=== PATIENT | female | born 1935 | race African-American/Black ===

== ENCOUNTER 2019-06-18 09:29 | Emergency (ER) | payer OTHER ==
--- OUTSIDE RECORDS SUMMARY | 2019-06-18 09:31 | XMS REPORT ---
:1935 [facility] Address [address] [place] [address] Dr. Griffiths. [address] [place] [id number] Care Team Providers Name Role Phone Unavailable Unavailable Unavailable Problems This patient has no known problems. Allergies, Adverse Reactions, Alerts This patient has no known allergies or adverse reactions. Medications This patient has no known medications.
[2019-06-18] MEDS ORDERED: MORPHINE 4 MG/ML SYR ONE (10:09)
[2019-06-18] MEDS ORDERED: ONDANSETRON 4 MG/2 ML VIAL ONE (10:09)
--- NOTE | 2019-06-18 10:43 | RAD REPORT ---
EXAM DESCRIPTION: CT - CTHCSPWOC - 06/18/2019 10:29 am CLINICAL HISTORY: Fall, head and neck injury COMPARISON: None. TECHNIQUE: Axial 5 mm thick images of the head were obtained. Axial 2 mm thick images of the cervic al spine were obtained with sagittal and coronal reconstruction images generated and reviewed. All CT scans are performed using dose optimization technique as appropriate and may include automated exposure control or mA/KV adjustment according to patient size. FINDINGS: No intracranial hemorrhage, mass, edema or acute intracranial finding. No acute cortical based infarc tion. No cortical edema or sulcal effacement. Patient has prominent atrophy and moderate chronic isch emic change. Ventricles are in proportion to the amount of volume loss. Arterial tree calcifications are present. No extra-axial fluid collections. Mastoid air cells and paranasal sinuses are clear. No globe or orbit abnormality seen. Cervical bodies are normal in height. Minimal anterior subluxation of C3 on C4 is present and can be accounted for by the severity of facet degenerative change. Very slight retrolisthesis of C4 relative to C5 seen with significant C4-5 disc space narrowing. C5-6 and C6-7 disc space narrowing also prese nt. Multilevel facet joint degenerative change present. Left bony foraminal encroachment at C3-4. Mil c-[id number] bilateral foraminal encroachment at C4-5 and on the left at C5-6. Left foraminal C6-7 e ncroachment. No fracture or acute bony abnormality. No paraspinal mass or hematoma. IMPRESSION: Prominent atrophy and chronic ischemic changes are present with no hemorrhage or acute i ntracranial finding. Prominent cervical spine degenerative change as detailed. No acute cervical spine finding. Central canal detail is inherently limited on CT imaging.
--- NOTE | 2019-06-18 10:53 | RAD REPORT ---
EXAM DESCRIPTION: CT - Chest Abd Pelvis Wo Con - 06/18/2019 10:29 am CLINICAL HISTORY: fall, right sided painchest abdomen and pelvic pain COMPARISON: None. TECHNIQUE: Axial 5 millimeter thick images of the chest abdomen and pelvis were obtained without IV contrast. No oral contrast. All CT scans are performed using dose optimization technique as appropriate and may include automated exposure control or mA/KV adjustment according to patient size. FINDINGS: No pneumothorax or pulmonary contusion. Fibrotic lung changes are present. No mass or infi ltrate in the lung parenchyma. No pleural fluid collection or pleural based mass. No chest wall mass or abnormal axillary lymphadenopathy seen. Mediastinal and hilar regions show no mass or lymphadenop athy. No significant cardiac finding. No endobronchial lesion. No displacement of the more Camilo calc ifications. Dense Coronary artery calcifications are present. The liver, spleen and pancreas show no significant findings. Gallbladder and biliary tree are normal . No hydronephrosis present. Renal function cannot be assessed on noncontrast imaging. No adrenal abnor malities. No urinary bladder abnormalities. An enlarged lobulated uterus is present with numerous v sadie densely calcified fibroids. Ovaries are atrophic or obscured by bowel. No suspicion for adnexal m ass. No acute bowel injury seen. Patient has a constipation pattern with a large amount of stool present d istending the entire course of the colon. No free air, free fluid or inflammatory stranding. No melissa ia, mass or bulky lymphadenopathy. Patient has bilateral subacute and chronic rib fractures. A lateral left fifth rib fracture is seen a nd appears to be acute. Lateral left sixth rib fracture an eighth rib fracture noted probably acute a s well. Posterior left eighth rib fracture is minimally displaced also appearing acute. Nondisplaced posterior seventh rib fractures seen. Approximately 25% compression fracture in the T12 body. Posterior wall height is preserved without en croachment into the central canal. Age is uncertain. No lytic or blastic component. IMPRESSION: CT chest imaging shows no pulmonary contusion, pneumothorax or other emergent finding. Patient has multiple left-sided rib fractures that appear to be acute. Patient has bilateral subacute and chronic rib fracture changes as well. No associated pleural or parenchymal acute injury related to the fractures. Approximately 25% T12 fracture with posterior wall height preserved. Age of the fracture is uncertain . No acute CT abdomen or pelvis finding. Patient has a constipation pattern with a large amount of stoo l distending the entirety of the colon.
[2019-06-18] MEDS ORDERED: FENTANYL CITR 100 MCG/2 ML ONE (11:50)
--- NOTE | 2019-06-18 17:33 | ER ---
Nurse's Notes [facility] Name: Peggy Nava Age: 84 yrs Sex: Female : 1935 Arrival Date: 06/18/2019 Time: 09:36 Bed 15 Private MD: Diagnosis: Multiple fractures of ribs, bilateral;Fracture of T11-T12 vertebra Presentation: 06/18 09:36 Presenting complaint: EMS states: called out for fall, was sitting on the edge of bed, em turned and slipped onto the floor, denies hitting head or LOC, complaining of R rib pain and R hip pain. Transition of care: patient was not received from another setting of care. Onset of symptoms was June 18, 2019. Risk Assessment: Do you want to hurt yourself or someone else? Patient reports no desire to harm self or others. Initial Sepsis Screen: Does the patient meet any 2 criteria? No. Patient's initial sepsis screen is negative. Does the patient have a suspected source of infection? No. Patient's initial sepsis screen is negative. Care prior to arrival: None. 09:36 Method Of Arrival: EMS: [facility] em 09:44 Acuity: BARB 3 ss 11:38 Mechanism of Injury: Fall sitting onto floor. Trauma event details: Injury occurred in [address], Injury occurred: at home. Injury occurred: June 18, 2019. Trauma Activation: Not Applicable Physician: ED Physician; Name: ; Notified At: ; Arrived At: Physician: General Surgeon; Name: ; Notified At: ; Arrived At: Physician: Radiology; Name: ; Notified At: ; Arrived At: Physician: Respiratory; Name: ; Notified At: ; Arrived At: Physician: Lab; Name: ; Notified At: ; Arrived At: Historical: - Home Meds: 09:42 Tylenol-Codeine #3 300-30 mg oral tab [Active]; lorazepam 2 mg Oral tab 1 tab 2 times em per day [Active]; tramadol 50 mg Oral tab 1 tab every 6 hours [Active]; tresiba [Active]; - PMHx: 09:42 Diabetes - IDDM; Hypertension; em - PSHx: 09:42 left hip surgery; left knee replacement; Left toe surgery; em - Immunization history:: Adult Immunizations unknown. - Social history:: Smoking status: Patient/guardian denies using tobacco. - Immunization history: Last tetanus immunization: unknown. - Ebola Screening: : Patient negative for fever greater than or equal to 101.5 degrees Fahrenheit, and additional compatible Ebola Virus Disease symptoms Patient denies exposure to infectious person Patient denies travel to an Ebola-affected area in the 21 days before illness onset No symptoms or risks identified at this time. Screenin:54 Abuse screen: Denies threats or abuse. Denies injuries from another. Nutritional jl7 screening: No deficits noted. Tuberculosis screening: No symptoms or risk factors identified. Fall Risk Fall in past 12 months (25 points). Total [place] Fall Scale indicates High Risk Score (45 or more points). Fall prevention measures have been instituted. Side Rails Up X 2 Placed Close to Nursing Station Frequent Obs/Assessments Occuring As available patient and family educated on Fall Prevention Program and Strategies. Primary Survey: 09:45 NO uncontrolled hemorrhage observed. Breathing/Chest: Respiratory pattern: regular, jl7 Respiratory effort: spontaneous, unlabored, Chest inspection: symmetrical rise and fall of the chest. Circulation: Skin color: pink. Disability Alert. Exposure/Environment: A warming method has been applied: A warm blanket has been provided to the patient. 10:00 Reassessment Breathing/Chest Respiratory pattern Regular Respiratory effort Spontaneous jl7 Unlabored Chest inspection Symmetrical Circulation Color [place] Disability Alert. Assessment: 09:54 General: Appears uncomfortable, Behavior is cooperative, anxious, crying. Pain: jl7 Complains of pain in "All over but mainly my back under my left shoulder blade.". Neuro: Level of Consciousness is awake, alert, obeys commands, Oriented to person, place, time. Cardiovascular: Patient's skin is warm and dry. Respiratory: Airway is patent Respiratory effort is even, unlabored, Respiratory pattern is regular, symmetrical. GI: No signs and/or symptoms were reported involving the gastrointestinal system. : No signs and/or symptoms were reported regarding the genitourinary system. EENT: No signs and/or symptoms were reported regarding the EENT system. Derm: Skin is pink, warm \\T\\ dry. Musculoskeletal: denies tenderness on palpation. 11:00 Reassessment: Patient appears in no apparent distress at this time. Patient and/or jl7 family updated on plan of care and expected duration. Pain level reassessed. Patient is alert, oriented x 3, equal unlabored respirations, skin warm/dry/pink. Patient states feeling better. 12:00 Reassessment: Patient appears in no apparent distress at this time. No changes from jl7 previously documented assessment. Patient and/or family updated on plan of care and expected duration. Pain level reassessed. Patient is alert, oriented x 3, equal unlabored respirations, skin warm/dry/pink. 13:15 Reassessment: attempted to ambulate pt with walker, pt stood up and c/o left thigh/hip jl7 pain. ERP notified. 14:00 Reassessment: Patient appears in no apparent distress at this time. Patient and/or jl7 family updated on plan of care and expected duration. Pain level reassessed. Patient is alert, oriented x 3, equal unlabored respirations, skin warm/dry/pink. Patient states symptoms have improved. 15:00 Reassessment: Attempted to ambulate pt, pt refusing, reports "It's too painful." jl7 Readjusted pt in bed, notified ERP, no new orders at this time. Awaiting call back from rehab center. 16:05 Reassessment: Patient appears in no apparent distress at this time. Patient and/or jl7 family updated on plan of care and expected duration. Pain level reassessed. Pt laying in bed with eyes closed, respirations even and unlabored, no signs of distress noted at this time, family remains at bedside. 17:00 Reassessment: Patient appears in no apparent distress at this time. No changes from jl7 previously documented assessment. Patient and/or family updated on plan of care and expected duration. Pain level reassessed. Patient is alert, oriented x 3, equal unlabored respirations, skin warm/dry/pink. 17:30 Reassessment: Pt will be discharged once family arrives to assist in transporting pt jl7 home. Vital Signs: 09:42 BP 109 / 56; Pulse 93; Resp 20; Temp 98.1(O); Pulse Ox 97% on R/A; Weight 83.46 kg; em Height 5 ft. 7 in. (170.18 cm); Pain 10/10; 10:00 BP 114 / 65; Pulse 89; Resp 16 S; Pulse Ox 99% on R/A; jl7 11:00 BP 127 / 72; Pulse 91; Resp 14 S; Pulse Ox 90% on R/A; jl7 11:30 BP 129 / 67; Pulse 87; Resp 14 S; Pulse Ox 100% on 2 lpm NC; jl7 12:30 BP 131 / 58; Pulse 84; Resp 16 S; Pulse Ox 100% on 2 lpm NC; jl7 14:05 BP 124 / 56; Pulse 87; Resp 14 S; Pulse Ox 100% on R/A; jl7 16:06 BP 146 / 60; Pulse 89; Resp 16 S; Pulse Ox 100% on R/A; jl7 09:42 Body Mass Index 28.82 (83.46 kg, 170.18 cm) em [place] Coma Score: 09:42 Eye Response: spontaneous(4). Verbal Response: oriented(5). Motor Response: obeys jl7 commands(6). Total: 15. Trauma Score (Adult): 09:42 Eye Response: spontaneous(1); Verbal Response: oriented(1); Motor Response: obeys jl7 commands(2); Systolic BP: > 89 mm Hg(4); Respiratory Rate: 10 to 29 per min(4); [place]ora Score: 15; Trauma Score: 12 ED Course: 09:36 Patient arrived in ED. em 09:42 Arm band placed on. em 09:44 Triage completed. ss 09:45 Alexandria Jason, MARIANNA is Primary Nurse. jl7 09:53 Mehul Sweet PA is PHCP. jm 09:54 Faraz Islas MD is Attending Physician. [place] 09:54 Patient has correct armband on for positive identification. Bed in low position. Call jl7 light in reach. Side rails up X 1. industrial controller on. Pulse ox on. NIBP on. 10:10 Inserted saline lock: 22 gauge in right hand, using aseptic technique. jl7 10:31 CT Head C Spine In Process Unspecified. EDMS 10:31 CT Chest Abdomen Pelvis W/O Contrast In Process Unspecified. EDMS 11:00 Patient maintains SpO2 saturation greater than 95% on room air. Thermoregulation: warm jl7 blanket given to patient. 18:45 No provider procedures requiring assistance completed. IV discontinued, intact, jl7 bleeding controlled, No redness/swelling at site. Pressure dressing applied. 19:31 Primary Nurse role handed off by Alexandria Jason RN jl7 Administered Medications: 10:13 Drug: Zofran 4 mg Route: IVP; Site: right hand; jl7 11:25 Follow up: Response: No adverse reaction jl7 10:15 Drug: morphine 4 mg Route: IVP; Site: right hand; jl7 10:40 Follow up: Response: No adverse reaction; Pain is decreased jl7 11:51 Drug: fentaNYL (PF) 25 mcg Route: IVP; Site: right hand; jl7 12:15 Follow up: Response: No adverse reaction; Pain is decreased jl7 13:22 Drug: fentaNYL (PF) 25 mcg Route: IVP; Site: right hand; jl7 14:02 Follow up: Response: No adverse reaction; Pain is decreased; RASS: Light sedation (-2) jl7 18:45 Drug: fentaNYL (PF) 25 mcg Route: IVP; Site: right hand; jl7 18:45 Follow up: Response: Medication administered at discharge. jl7 Point of Care Testing: Blood Glucose: 17:28 Blood Glucose: 145 mg/dL; jl7 Ranges: Outcome: 17:32 Discharge ordered by . [place] 18:45 Discharged to home via wheelchair, with family. jl7 18:45 Condition: stable 18:45 Discharge instructions given to patient, family, Instructed on discharge instructions, follow up and referral plans. medication usage, Demonstrated understanding of instructions, follow-up care, medications, Prescriptions given X 1. 19:12 Patient left the ED. jl7 19:32 Patient left the ED. jl7 Signatures: Dispatcher [employer] EDMS Mehul Sweet PA PA Tawanda Lara, MASTER MERCHANDISER MASTER MERCHANDISER Zarina Limon RN RN Alexandria Jason RN RN jl7 Corrections: (The following items were deleted from the chart) 11:24 09:54 Pain: Complains of pain in "All over but mainly my back under my left shoulder jlMarci blade." jl7 19:29 09:54 Pain: Complains of pain in "All over but mainly my back under my shoulder blade." pradeep fernández 19:29 15:00 Reassessment: Attempted to ambulate pt, pt refusing, reports "It's to painful." jl7 Readjusted pt in bed, notified ERP, no new orders at this time. Awaiting call back from [facility] jl7
--- NOTE | 2019-06-18 17:34 | EDPHYS ---
Physician Documentation [facility] Name: Peggy Nava Age: 84 yrs Sex: Female : 1935 Arrival Date: 06/18/2019 Time: 09:36 Bed 15 Private MD: ED Physician Faraz Islas HPI: 06/18 09:54 This 84 yrs old Black Female presents to ER via EMS with complaints of Fall Injury. [facility] 09:54 Details of fall: The patient fell from seated position, off the edge of a bed. Onset: jmm The symptoms/episode began/occurred acutely, just prior to arrival. This is an 84 year old female with a history of dm, htn that presents to the ED with complaints of left sided rib pain after a fall which occurred just prior to arrival. Patient states she was seated at the edge of her bed, turned, and then slipped off the bed landing on her left side. Patient complains of diffuse left sided rib pain. Denies known head injury, denies neck pain. . Historical: - Home Meds: 09:42 Tylenol-Codeine #3 300-30 mg oral tab [Active]; lorazepam 2 mg Oral tab 1 tab 2 times em per day [Active]; tramadol 50 mg Oral tab 1 tab every 6 hours [Active]; tresiba [Active]; - PMHx: 09:42 Diabetes - IDDM; Hypertension; em - PSHx: 09:42 left hip surgery; left knee replacement; Left toe surgery; em - Immunization history:: Adult Immunizations unknown. - Social history:: Smoking status: Patient/guardian denies using tobacco. - Immunization history: Last tetanus immunization: unknown. - Ebola Screening: : Patient negative for fever greater than or equal to 101.5 degrees Fahrenheit, and additional compatible Ebola Virus Disease symptoms Patient denies exposure to infectious person Patient denies travel to an Ebola-affected area in the 21 days before illness onset No symptoms or risks identified at this time. ROS: 09:54 Constitutional: Negative for fever, chills, and weight loss, Cardiovascular: Negative jm for chest pain, palpitations, and edema, Respiratory: Negative for shortness of breath, cough, wheezing, and pleuritic chest pain. 09:54 MS/Extremity: Negative for injury and deformity, Skin: Negative for injury, rash, and discoloration, Neuro: Negative for headache, weakness, numbness, tingling, and seizure, Psych: Negative for depression, anxiety, suicide ideation, homicidal ideation, and hallucinations. 09:54 Back: Positive for left rib pain. 09:54 All other systems are negative. Exam: 09:54 Head/Face: atraumatic. Eyes: EOMI, no conjunctival erythema appreciated ENT: Moist jmm Mucus Membranes Neck: Trachea midline, Supple 09:54 Constitutional: The patient appears alert, awake, in obvious pain. 09:54 Head/face: Exam is negative for naqvi signs, contusion. Vital Signs: 09:42 BP 109 / 56; Pulse 93; Resp 20; Temp 98.1(O); Pulse Ox 97% on R/A; Weight 83.46 kg; em Height 5 ft. 7 in. (170.18 cm); Pain 10/10; 10:00 BP 114 / 65; Pulse 89; Resp 16 S; Pulse Ox 99% on R/A; jl7 11:00 BP 127 / 72; Pulse 91; Resp 14 S; Pulse Ox 90% on R/A; jl7 11:30 BP 129 / 67; Pulse 87; Resp 14 S; Pulse Ox 100% on 2 lpm NC; jl7 12:30 BP 131 / 58; Pulse 84; Resp 16 S; Pulse Ox 100% on 2 lpm NC; jl7 14:05 BP 124 / 56; Pulse 87; Resp 14 S; Pulse Ox 100% on R/A; jl7 16:06 BP 146 / 60; Pulse 89; Resp 16 S; Pulse Ox 100% on R/A; jl7 09:42 Body Mass Index 28.82 (83.46 kg, 170.18 cm) em [place] Coma Score: 09:42 Eye Response: spontaneous(4). Verbal Response: oriented(5). Motor Response: obeys jl7 commands(6). Total: 15. Trauma Score (Adult): 09:42 Eye Response: spontaneous(1); Verbal Response: oriented(1); Motor Response: obeys jl7 commands(2); Systolic BP: > 89 mm Hg(4); Respiratory Rate: 10 to 29 per min(4); [place] Score: 15; Trauma Score: 12 MDM: 09:54 Patient medically screened. [facility] 16:37 Data reviewed: vital signs, nurses notes. Counseling: I had a detailed discussion with [facility] the patient and/or guardian regarding: the historical points, exam findings, and any diagnostic results supporting the discharge/admit diagnosis, radiology results, the need for outpatient follow up, to return to the emergency department if symptoms worsen or persist or if there are any questions or concerns that arise at home. ED course: I discussed the patient with Dr. Baker whom stated the patient did not qualify for admission. I discussed this with the family. Family was given information for [facility]. Patient was given incentive spirometry. Family otherwise given strict return precautions. . 06/18 10:07 Order name: CT Head C Spine; Complete Time: 10:[address] [facility] 06/18 10:07 Order name: CT Chest Abdomen Pelvis W/O Contrast; Complete Time: 11:[address] [facility] 06/18 12:20 Order name: INCENTIVE SPIROMETRY [facility] 06/18 12:20 Order name: Misc. Order: ambulate; Complete Time: 16:[address] [facility] 06/18 16:59 Order name: Fingerstick Glucose; Complete Time: 17:[address] [facility] Administered Medications: 10:13 Drug: Zofran 4 mg Route: IVP; Site: right hand; jl7 11:25 Follow up: Response: No adverse reaction jl7 10:15 Drug: morphine 4 mg Route: IVP; Site: right hand; jl7 10:40 Follow up: Response: No adverse reaction; Pain is decreased jl7 11:51 Drug: fentaNYL (PF) 25 mcg Route: IVP; Site: right hand; jl7 12:15 Follow up: Response: No adverse reaction; Pain is decreased jl7 13:22 Drug: fentaNYL (PF) 25 mcg Route: IVP; Site: right hand; jl7 14:02 Follow up: Response: No adverse reaction; Pain is decreased; RASS: Light sedation (-2) jl7 18:45 Drug: fentaNYL (PF) 25 mcg Route: IVP; Site: right hand; jl7 18:45 Follow up: Response: Medication administered at discharge. jl7 Point of Care Testing: Blood Glucose: 17:28 Blood Glucose: 145 mg/dL; jl7 Ranges: Critical Glucose Levels:Adult <50 mg/dl or >400 mg/dl <40 mg/dl or >180 mg/dl Disposition: 08/24 09:16 Co-signature as Attending Physician, Faraz Islas MD I agree with the assessment and [facility] plan of care. Disposition: 06/18/19 17:32 Discharged to Home. Impression: Multiple fractures of ribs, bilateral, Fracture of T11-T12 vertebra. - Condition is Stable. - Discharge Instructions: Vertebral Fracture, Rib Fracture, Incentive Spirometer. - Prescriptions for Tylenol- Codeine #3 300-30 mg Oral Tablet - take 2 tablet by ORAL route every 6 hours As needed; 30 tablet. - Medication Reconciliation Form, Thank You Letter, Antibiotic Education, Prescription Opioid Use form. - Follow up: Private Physician; When: 2 - 3 days; Reason: Recheck today's complaints, Continuance of care, Re-evaluation by your physician. - Notes: Please call [facility] at [phone] for rehabilitation service. please return the patient to the ED if she develops increased pain, shortness of breath, fever, or any concerning symptoms. Signatures: Dispatcher [employer] [facility] Faraz Isals MD MD cha Mickail, Joel, PA PA [facility] Tawanda Kearney, PRODUCTION INTERNS[employer] Alexandria Arnold, RN RN jl7 Corrections: (The following items were deleted from the chart) 06/18 13:54 13:29 CT LEFT HIP WO CONTRAST ordered. [facility] 17:33 17:32 06/18/2019 17:32 Discharged to Home. Impression: Multiple fractures of ribs, jmm bilateral. Condition is Stable. Forms are Medication Reconciliation Form, Thank You Letter, Antibiotic Education, Prescription Opioid Use. Follow up: Private Physician; When: 2 - 3 days; Reason: Recheck today's complaints, Continuance of care, Re-evaluation by your physician. [facility] 19:12 17:33 06/18/2019 17:32 Discharged to Home. Impression: Multiple fractures of ribs, jl7 bilateral; Fracture of T11-T12 vertebra. Condition is Stable. Forms are Medication Reconciliation Form, Thank You Letter, Antibiotic Education, Prescription Opioid Use. Follow up: Private Physician; When: 2 - 3 days; Reason: Recheck today's complaints, Continuance of care, Re-evaluation by your physician. [facility] 19:32 19:12 06/18/2019 17:32 Discharged to Home. Impression: Multiple fractures of ribs, jl7 bilateral; Fracture of T11-T12 vertebra. Condition is Stable. Discharge Instructions: Vertebral Fracture, Rib Fracture, Incentive Spirometer. Prescriptions for Tylenol-Codeine #3 300-30 mg Oral Tablet - take 2 tablet by ORAL route every 6 hours As needed; 30 tablet. and Forms are Medication Reconciliation Form, Thank You Letter, Antibiotic Education, Prescription Opioid Use. Follow up: Private Physician; When: 2 - 3 days; Reason: Recheck today's complaints, Continuance of care, Re-evaluation by your physician. jl7
[2019-06-18 21:50] VITALS: TEMP 98.1
[2019-06-18 21:55] VITALS: O2SAT 100
[2019-06-18 22:01] VITALS: BP 146/60
== END 2019-06-18 19:32 | disposition home or self-care (01) ==
LOC: ER 09:29
DX: S22.43XA Multiple fractures of ribs, bilateral, initial encounter for closed fracture (principal); S22.089A Unspecified fracture of T11-T12 vertebra, initial encounter for closed fracture; I10 Essential (primary) hypertension; E11.9 Type 2 diabetes mellitus without complications; W17.89XA Other fall from one level to another, initial encounter; Y93.89 Activity, other specified; Y92.003 Bedroom of unspecified non-institutional (private) residence as the place of occurrence of the external cause
CPT/HCPCS: 82962; 70450; 71250; 72125; 74176; 96375; 96374; 99285; J3010; J2405

== ENCOUNTER 2019-06-25 15:22 | Inpatient (IN) | payer OTHER ==
[2019-06-25] MEDS ORDERED: NA CHLORIDE 0.9% 1,000 ML ONE (16:13)
[2019-06-25 16:25] LABS: Absolute Lymphocytes (CBC) 1.1 K/uL (0.7-4.9); Basophils % 0.7 % (0-1.3); Hematocrit 26.2 % (36.0-45.0); Lymphocytes % 19.8 % (15.3-44.8); MPV 8.8 fL (7.6-11.3); RBC Red Blood Cell Count 3.63 M/uL (3.86-4.86)
[2019-06-25 16:35] LABS: Potassium 4.2 mmol/L (3.5-5.1)
[2019-06-25 16:45] LABS: Urine Blood TRACE (NEG); Urine Glucose 2+ (NEG); Urine Protein NEGATIVE (NEG); Urine Specific Gravity 1.025 (1.005-1.030); Urine pH 5.5 (5.0-7.0)
[2019-06-25 16:53] LABS: Urine Amorphous Sediment 1+ /HPF (NONE SEEN); Urine Bacteria 20-50 /HPF (<20); Urine Culture Reflex Order REFLEXED; Urine RBC <5 /HPF (NONE SEEN)
[2019-06-25] MEDS ORDERED: CEFTRIAXONE/SWI 1gm 1 GM/10 ML SYR ONE (17:28)
--- NOTE | 2019-06-25 17:56 | RAD REPORT ---
EXAM DESCRIPTION: Tavo Single View06/25/2019 4:27 pm CLINICAL HISTORY: Chest pain COMPARISON: June 18, 2019 FINDINGS: Patient has known subacute left rib fractures Small left pleural effusion is present. Left basilar opacity may represent atelectasis or pneumonia. Right lung appears clear. Heart is mildly enlarged
--- NOTE | 2019-06-25 18:22 | ER ---
Nurse's Notes [facility] Name: Peggy Nava Age: 84 yrs Sex: Female : 1935 Arrival Date: 06/25/2019 Time: 15:34 Bed 25 Private MD: Diagnosis: Altered mental status, unspecified;Urinary tract infection, site not specified Presentation: 06/25 15:34 Presenting complaint: EMS states: Ppt sustained a fall on and brought to the [facility] ER. She had 2 L rib fracture and was sent home on pain meds. We were called in today for worsening at the fractured area. Pt lays on her R side because laying on the L side causes a lot of pain. Pt took 2 Tylenol #3 at 1400 with no relief. Pt is A\T\Ox2 with we arrive, but has since sustained a conversation. Transition of care: patient was not received from another setting of care. Onset of symptoms was June 25, 2019. Risk Assessment: Do you want to hurt yourself or someone else? Patient reports no desire to harm self or others. Initial Sepsis Screen: Does the patient meet any 2 criteria? No. Patient's initial sepsis screen is negative. Does the patient have a suspected source of infection? No. Patient's initial sepsis screen is negative. Care prior to arrival: Glucose check: 295. 15:34 Method Of Arrival: EMS: [facility] 15:34 Acuity: BARB 3 ca1 Triage Assessment: 15:41 General: Appears in no apparent distress. uncomfortable, Behavior is calm, cooperative. ca1 Pain: Complains of pain in right lateral anterior chest. Historical: - Allergies: 16:03 No Known Allergies; ca1 - Home Meds: 15:41 lorazepam 2 mg Oral tab 1 tab 2 times per day [Active]; tramadol 50 mg Oral tab 1 tab ca1 every 6 hours [Active]; tresiba [Active]; Tylenol-Codeine #3 300-30 mg Oral tab [Active]; - PMHx: 15:41 Diabetes - IDDM; Hypertension; ca1 - PSHx: 15:41 left hip surgery; left knee replacement; Left toe surgery; ca1 - Immunization history:: Adult Immunizations unknown. - Social history:: Smoking status: Patient/guardian denies using tobacco. - Ebola Screening: : Patient negative for fever greater than or equal to 101.5 degrees Fahrenheit, and additional compatible Ebola Virus Disease symptoms Patient denies exposure to infectious person Patient denies travel to an Ebola-affected area in the 21 days before illness onset No symptoms or risks identified at this time. Screenin:01 Abuse screen: Denies threats or abuse. Denies injuries from another. Nutritional ca1 screening: No deficits noted. Tuberculosis screening: No symptoms or risk factors identified. Fall Risk Fall in past 12 months (25 points). IV access (20 points). Ambulatory Aid- Crutches/Cane/Walker (15 pts). Gait- Weak (10 pts.). Total Liz[place]aga Fall Scale indicates High Risk Score (45 or more points). Fall prevention measures have been instituted. Side Rails Up X 2 Frequent Obs/Assessments Occuring As available patient and family educated on Fall Prevention Program and Strategies. Assessment: 16:03 General: Appears in no apparent distress. uncomfortable, Behavior is calm, cooperative, ca1 appropriate for age. Pain: Complains of pain in right lateral anterior chest Pain currently is 6 out of 10 on a pain scale. Neuro: Level of Consciousness is awake, confused, Oriented to person, place. Cardiovascular: Heart tones S1 S2 present Capillary refill < 3 seconds Patient's skin is warm and dry. Respiratory: Airway is patent Respiratory effort is even, unlabored, Respiratory pattern is regular, symmetrical, Breath sounds are clear bilaterally. Respiratory: Reports cough that is. GI: Abdomen is round non-distended, Bowel sounds present X 4 quads. Abd is soft and non tender X 4 quads. : No deficits noted. No signs and/or symptoms were reported regarding the genitourinary system. EENT: No deficits noted. No signs and/or symptoms were reported regarding the EENT system. Derm: Skin is intact, is healthy with good turgor, Skin is pink, warm \T\ dry. Musculoskeletal: Circulation, motion, and sensation intact. Capillary refill < 3 seconds. 17:00 Reassessment: Patient appears in no apparent distress at this time. No changes from ca1 previously documented assessment. 18:01 Reassessment: Patient appears in no apparent distress at this time. Patient and/or ca1 family updated on plan of care and expected duration. Pain level reassessed. Daughter at bedside. Daughter reports that pt has been progressively confused since the fall. Denies fever, cough. 18:59 Reassessment: Patient appears in no apparent distress at this time. No changes from ca1 previously documented assessment. Patient and/or family updated on plan of care and expected duration. Pain level reassessed. Daughter still at bedside. Daughter provided family contact numbers: [phone], [phone]. 19:28 Reassessment: Patient appears in no apparent distress at this time. Pt appears ca1 agitated. Sitting up on bed and talking to herself. Notified provider. Informed of pt's Lorazepam home meds for anxiety. Meds ordered and given. 20:41 Reassessment: Patient appears in no apparent distress at this time. Patient and/or ca1 family updated on plan of care and expected duration. Pain level reassessed. Pt appears calm. Skin pink, warm and dry. Granddaughter at bedside. Vital Signs: 15:41 BP 140 / 90; Pulse 84; Resp 17 S; Temp 97.8(TE); Pulse Ox 96% on R/A; ca1 15:57 Weight 83.46 kg (R); Height 5 ft. 7 in. (170.18 cm); ca1 16:30 BP 161 / 48; Pulse 86; Resp 19 S; Pulse Ox 100% on R/A; ca1 17:30 BP 128 / 96; Pulse 90; Resp 18 S; Temp 97.7(TE); Pulse Ox 100% on R/A; ca1 18:59 BP 117 / 79; Pulse 89; Resp 15 S; Temp 97.2(TE); Pulse Ox 97% on R/A; ca1 19:28 BP 116 / 70; Pulse 88; Resp 17 S; Pulse Ox 100% on R/A; ca1 20:41 BP 105 / 66; Pulse 89; Resp 19 S; Temp 97.4(TE); Pulse Ox 99% on R/A; ca1 15:57 Body Mass Index 28.82 (83.46 kg, 170.18 cm) ca1 ED Course: 15:34 Patient arrived in ED. ca1 15:40 Triage completed. ca1 15:41 Arm band placed on right wrist. ca1 15:54 Kalin Davies [facility]. jr8 15:54 Laurent Zuniga MD is Attending Physician. jr8 16:01 Patient has correct armband on for positive identification. Placed in gown. Bed in low ca1 position. Call light in reach. Side rails up X 1. monitoring specialist on. Pulse ox on. NIBP on. Warm blanket given. 16:01 No provider procedures requiring assistance completed. Inserted saline lock: 22 gauge ca1 in left antecubital area, using aseptic technique. Blood collected. 16:05 Radha Beach, RN is Primary Nurse. ca1 16:06 Basic Metabolic Panel Sent. ca1 16:27 XRAY Chest (1 view) In Process Unspecified. EDMS 16:33 Straight cath inserted, using sterile technique, 16 Fr. Specimen obtained. Returned ca1 clear yellow urine. Patient tolerated well. 18:19 Hannah Rosas MD is Hospitalizing Provider. [facility] 18:36 CT completed. Patient tolerated procedure well. Patient moved to CT. Patient moved back la from CT. 18:38 CT Head Brain wo Cont In Process Unspecified. EDMS 20:44 Patient admitted, IV remains in place. ca1 Administered Medications: 16:10 Drug: NS 0.9% 1000 ml Route: IV; Rate: 1000 ml; Site: left antecubital; ca1 19:04 Follow up: Response: No adverse reaction; IV Status: Completed infusion; IV Intake: ca1 1000ml 17:29 Drug: Rocephin 1 grams Route: IV; Rate: calculated rate; Site: left antecubital; ca1 19:04 Follow up: Response: No adverse reaction; IV Status: Completed infusion ca1 18:50 Drug: Insulin Regular Human 10 units {Co-Signature: samuel (Mat Rick).} Route: IVP; ca1 Site: left antecubital; 20:46 Follow up: Response: No adverse reaction; Blood sugar is lowered ca1 18:52 Drug: fentaNYL (PF) 25 mcg {Note: RASS - 1.} Route: IVP; Site: left antecubital; ca1 19:33 Follow up: Response: No adverse reaction; Pain is decreased ca1 19:32 Drug: LORazepam 1 mg Route: PO; ca1 20:45 Follow up: Response: No adverse reaction ca1 Point of Care Testing: Blood Glucose: 15:59 Blood Glucose: 384 mg/dL; ca1 17:20 Blood Glucose: 370 mg/dL; ca1 19:41 Blood Glucose: 282 mg/dL; ca1 Ranges: Intake: 19:04 IV: 1000ml; Total: 1000ml. ca1 Output: 16:34 Urine: 900ml (Straight Cath); Total: 900ml. ca1 Outcome: 18:20 Decision to Hospitalize by Provider. alexandro 20:44 Admitted to Tele accompanied by tech, via stretcher, room 402, with chart, Report ca1 called to Ivone Asencio RN 20:44 Condition: stable 20:44 Instructed on the need for admit. 21:36 Patient left the ED. bb Signatures: Dispatcher [employer] EDJuani Flores RN RN Kalin Sánchez PA PA jr8 Marek Stewart Cheryl, RN RN ca1 [facility] Corrections: (The following items were deleted from the chart) 18:07 16:03 General: Appears in no apparent distress. uncomfortable, Behavior is calm, ca1 cooperative, appropriate for age, ca1 18:07 16:03 Neuro: Level of Consciousness is awake, alert, obeys commands, Oriented to ca1 person, place, time, situation, ca1 18:10 18:01 Reassessment: Patient appears in no apparent distress at this time. Patient ca1 and/or family updated on plan of care and expected duration. Pain level reassessed. Daughter at bedside. Daughter reports that pt has been progressively confused since the fall. ca1 18:10 17:00 Reassessment: Patient appears in no apparent distress at this time. No changes ca1 from previously documented assessment. ca1
--- NOTE | 2019-06-25 18:22 | EDPHYS ---
Physician Documentation [facility] Name: Peggy Nava Age: 84 yrs Sex: Female : 1935 Arrival Date: 06/25/2019 Time: 15:34 Bed 25 Private MD: ED Physician Laurent Zuniga HPI: 06/25 16:08 This 84 yrs old Black Female presents to ER via EMS with complaints of pain. jr8 16:08 Patient brought to ED from home after EMS was called out for uncontrolled pain. Stated jr8 that she had fallen a few days ago and was evaluated and found to have multiple rib fractures. Was sent leonor on medication and IS. EMS stated that family was concerned because her pain was not controlled. Patient alert and oriented to person, place, upon arrival. Complains of only minimal pain but stated that she generally does not feel well. Severity of symptoms: At their worst the symptoms were moderate. It is unknown whether or not the patient has had similar symptoms in the past. The patient has been recently seen by a physician:. Historical: - Allergies: 16:03 No Known Allergies; ca1 - Home Meds: 15:41 lorazepam 2 mg Oral tab 1 tab 2 times per day [Active]; tramadol 50 mg Oral tab 1 tab ca1 every 6 hours [Active]; tresiba [Active]; Tylenol-Codeine #3 300-30 mg Oral tab [Active]; - PMHx: 15:41 Diabetes - IDDM; Hypertension; ca1 - PSHx: 15:41 left hip surgery; left knee replacement; Left toe surgery; ca1 - Immunization history:: Adult Immunizations unknown. - Social history:: Smoking status: Patient/guardian denies using tobacco. - Ebola Screening: : Patient negative for fever greater than or equal to 101.5 degrees Fahrenheit, and additional compatible Ebola Virus Disease symptoms Patient denies exposure to infectious person Patient denies travel to an Ebola-affected area in the 21 days before illness onset No symptoms or risks identified at this time. ROS: 16:08 Eyes: Negative for injury, pain, redness, and discharge, ENT: Negative for injury, jr8 pain, and discharge, Neck: Negative for injury, pain, and swelling, Respiratory: Negative for shortness of breath, cough, wheezing, and pleuritic chest pain, Abdomen/GI: Negative for abdominal pain, nausea, vomiting, diarrhea, and constipation, MS/Extremity: Negative for injury and deformity, Skin: Negative for injury, rash, and discoloration, Neuro: Negative for headache, weakness, numbness, tingling, and seizure. 16:08 Cardiovascular: Positive for chest pain, with movement. 16:08 Back: Positive for pain at rest, pain with movement. Exam: 16:08 Eyes: Pupils equal round and reactive to light, extra-ocular motions intact. Lids and jr8 lashes normal. Conjunctiva and sclera are non-icteric and not injected. Cornea within normal limits. Periorbital areas with no swelling, redness, or edema. ENT: Nares patent. No nasal discharge, no septal abnormalities noted. Tympanic membranes are normal and external auditory canals are clear. Oropharynx with no redness, swelling, or masses, exudates, or evidence of obstruction, uvula midline. Mucous membranes moist. Neck: Trachea midline, no thyromegaly or masses palpated, and no cervical lymphadenopathy. Supple, full range of motion without nuchal rigidity, or vertebral point tenderness. No Meningismus. Cardiovascular: Regular rate and rhythm with a normal S1 and S2. No gallops, murmurs, or rubs. Normal PMI, no JVD. No pulse deficits. Respiratory: Lungs have equal breath sounds bilaterally, clear to auscultation and percussion. No rales, rhonchi or wheezes noted. No increased work of breathing, no retractions or nasal flaring. Abdomen/GI: Soft, non-tender, with normal bowel sounds. No distension or tympany. No guarding or rebound. No evidence of tenderness throughout. Back: No spinal tenderness. No costovertebral tenderness. Full range of motion. Skin: Warm, dry with normal turgor. Normal color with no rashes, no lesions, and no evidence of cellulitis. MS/ Extremity: Pulses equal, no cyanosis. Neurovascular intact. Full, normal range of motion. 16:08 Chest/axilla: Inspection: normal, Palpation: tenderness, that is mild, of the left lateral posterior chest, right lateral posterior chest, left lateral anterior chest and right lateral anterior chest. 16:08 Neuro: Orientation: to person, place, situation, Mentation: able to follow commands, slow to respond, Memory: immediate memory is intact, remote memory is impaired, recent memory is impaired, Cranial nerves: CN I not tested, CN II- XII are normal as tested, extraocular movements are intact, Facial palsy and sensory deficits are absent. Nystagmus is absent. Speech is clear and appropriate. Tongue strength is normal, Cerebellar function: no acute changes, Motor: moves all fours, Sensation: no obvious gross deficits, Gait: not tested. seizure activity, is not displayed by the patient, Abnormal movements: there are no abnormal movements. Vital Signs: 15:41 BP 140 / 90; Pulse 84; Resp 17 S; Temp 97.8(TE); Pulse Ox 96% on R/A; ca1 15:57 Weight 83.46 kg (R); Height 5 ft. 7 in. (170.18 cm); ca1 16:30 BP 161 / 48; Pulse 86; Resp 19 S; Pulse Ox 100% on R/A; ca1 17:30 BP 128 / 96; Pulse 90; Resp 18 S; Temp 97.7(TE); Pulse Ox 100% on R/A; ca1 18:59 BP 117 / 79; Pulse 89; Resp 15 S; Temp 97.2(TE); Pulse Ox 97% on R/A; ca1 19:28 BP 116 / 70; Pulse 88; Resp 17 S; Pulse Ox 100% on R/A; ca1 20:41 BP 105 / 66; Pulse 89; Resp 19 S; Temp 97.4(TE); Pulse Ox 99% on R/A; ca1 15:57 Body Mass Index 28.82 (83.46 kg, 170.18 cm) ca1 MDM: 15:54 Patient medically screened. jr8 18:13 Data reviewed: vital signs, nurses notes, lab test result(s), EKG, radiologic studies, jr8 CT scan, plain films. Data interpreted: Pulse oximetry: on room air is 100 %. Interpretation: normal. Counseling: I had a detailed discussion with the patient and/or guardian regarding: the historical points, exam findings, and any diagnostic results supporting the discharge/admit diagnosis, lab results, radiology results, the need for further work-up and treatment in the hospital. 18:14 ED course: Patient continues to have confused/delirious episodes. Family arrived to ED jr8 and stated that this is very abnormal for her. Explained to them that we will re-image patients head. Bacteria found in urine. Could be from UTI as well . 06/25 16:00 Order name: CBC with Diff; Complete Time: 19:24 [facility] 06/25 16:00 Order name: Basic Metabolic Panel; Complete Time: 16:41 8 06/25 16:00 Order name: Urine Microscopic Only; Complete Time: 17:14 [facility] 06/25 16:40 Order name: Urine Dipstick--Ancillary (enter results); Complete Time: 16:53 06/25 16:55 Order name: Urine Culture [facility] 06/25 18:20 Order name: Glucose, Ancillary Testing; Complete Time: 18:24 [facility] 06/25 16:00 Order name: XRAY Chest (1 view); Complete Time: 19:54 [facility] 06/25 18:13 Order name: CT Head Brain wo Cont; Complete Time: 20:30 [facility] 06/25 18:20 Order name: Glucose, Ancillary Testing; Complete Time: 18:24 [facility] 06/25 19:19 Order name: CBC Smear Scan; Complete Time: 19:24 [facility] 06/25 20:25 Order name: CBC with Automated Diff [facility] 06/25 20:25 Order name: CBC with Automated Diff [facility] 06/25 20:25 Order name: Comprehensive Metabolic Panel [facility] 06/25 20:25 Order name: Comprehensive Metabolic Panel [facility] 06/25 16:00 Order name: Urine Dipstick-Ancillary (obtain specimen); Complete Time: 16:33 [facility] 06/25 16:00 Order name: Straight Cath - Urine; Complete Time: 16:33 [facility] 06/25 20:25 Order name: CONS Pharmacy Consult [facility] 06/25 20:25 Order name: Regular EDMS Administered Medications: 16:10 Drug: NS 0.9% 1000 ml Route: IV; Rate: 1000 ml; Site: left antecubital; ca1 19:04 Follow up: Response: No adverse reaction; IV Status: Completed infusion; IV Intake: ca1 1000ml 17:29 Drug: Rocephin 1 grams Route: IV; Rate: calculated rate; Site: left antecubital; ca1 19:04 Follow up: Response: No adverse reaction; IV Status: Completed infusion ca1 18:50 Drug: Insulin Regular Human 10 units {Co-Signature: wh (Mat Rick).} Route: IVP; ca1 Site: left antecubital; 20:46 Follow up: Response: No adverse reaction; Blood sugar is lowered ca1 18:52 Drug: fentaNYL (PF) 25 mcg {Note: RASS - 1.} Route: IVP; Site: left antecubital; ca1 19:33 Follow up: Response: No adverse reaction; Pain is decreased ca1 19:32 Drug: LORazepam 1 mg Route: PO; ca1 20:45 Follow up: Response: No adverse reaction ca1 Point of Care Testing: Blood Glucose: 15:59 Blood Glucose: 384 mg/dL; ca1 17:20 Blood Glucose: 370 mg/dL; ca1 19:41 Blood Glucose: 282 mg/dL; ca1 Ranges: Critical Glucose Levels:Adult <50 mg/dl or >400 mg/dl <40 mg/dl or >180 mg/dl Disposition: 06/25/19 18:20 Hospitalization ordered by Hannah Rosas for Inpatient Admission. Preliminary diagnosis are Altered mental status, unspecified, Urinary tract infection, site not specified. - Bed requested for Telemetry/MedSurg (Inpatient). - Status is Inpatient Admission. bb - Condition is Stable. - Problem is new. - Symptoms are unchanged. UTI on Admission? Yes Addendum: 06/28/2019 09:33 Co-signature as Attending Physician, Laurent Zuniga MD I agree with the assessment and k dr plan of care. Signatures: Dispatcher [employer] EDMS Mi Chand RN RN Laurent Zuniga MD MD [facility] Juani Gamino RN RN bb Kalin Davies PA PA jr Radha Beach RN RN [address] Corrections: (The following items were deleted from the chart) 06/25 20:30 18:20 Hospitalization Ordered by Hannah Rosas MD for Inpatient Admission. Preliminary agata diagnosis is Altered mental status, unspecified; Urinary tract infection, site not specified. Bed requested for Telemetry/MedSurg (Inpatient). Status is Inpatient Admission. Condition is Stable. Problem is new. Symptoms are unchanged. UTI on Admission? Yes. jr8 21:36 20:30 06/25/2019 18:20 Hospitalization Ordered by Hannah Rosas MD for Inpatient bb Admission. Preliminary diagnosis is Altered mental status, unspecified; Urinary tract infection, site not specified. Bed requested for Telemetry/MedSurg (Inpatient). Status is Inpatient Admission. Condition is Stable. Problem is new. Symptoms are unchanged. UTI on Admission? Yes. mw
[2019-06-25] MEDS ORDERED: FENTANYL CITR 100 MCG/2 ML ONE (18:46)
[2019-06-25] MEDS ORDERED: INSULIN -REGULAR HUMAN 50 UNIT/0.5 ML ML ONE (18:47)
--- NOTE | 2019-06-25 18:48 | RAD REPORT ---
EXAM DESCRIPTION: CT - Head Brain Wo Cont - 06/25/2019 6:38 pm CLINICAL HISTORY: Alteration of awareness/confusion COMPARISON: June 18, 2019 TECHNIQUE: Computed axial tomography of the head was obtained. IV contrast was not requested. All CT scans are performed using dose optimization technique as appropriate and may include automated exposure control or mA/KV adjustment according to patient size. FINDINGS: An intracranial bleed is not seen . The ventricles are normal in caliber. No extra-axial fluid collection is noted. Cerebral atrophy is present Moderate low-density areas within periventricular, deep and subcortical white matter likely represent ischemic changes secondary to small vessel disease. Fluid within the sinuses/ mastoids is not seen. IMPRESSION: No acute intracranial abnormality is seen. If patient's symptoms persist MRI of the bra in would be recommended.
[2019-06-25 19:18] LABS: Platelet Estimate ADEQ; Urine White Blood Cell Casts OK
[2019-06-25 19:19] LABS: Anisocytosis 1+; Blood Morphology Comment NOTED (NOT SEEN); Hypochromasia 1+; Ovalocytes 1+
[2019-06-25] MEDS ORDERED: LORAZEPAM 1 MG TABLET ONE (19:27)
[2019-06-25] MEDS ORDERED: ONDANSETRON 4 MG/2 ML VIAL IV PRN (20:22)
[2019-06-25] MEDS ORDERED: CEFTRIAXONE 1 GM/NS 50 ML 1 GM/50 ML BAG IV SCH (21:00)
[2019-06-25 22:05] VITALS: BMI 29.1
[2019-06-25] MEDS ORDERED: WATER FOR INJ,STERILE 10 ML ONE (23:02)
[2019-06-25] MEDS: NA CHLORIDE 0.9% 1,000 ML IV SCH (23:10)
[2019-06-25] MEDS: HYDROCORTISONE SUC 100 MG INJ IV SCH (23:11)
[2019-06-26] MEDS: MORPHINE 2 MG/ML SYR IV PRN ×2 (05:16→11:05)
[2019-06-26 07:13] LABS: Basophils % 0.9 % (0-1.3); Hematocrit 27.8 % (36.0-45.0); Lymphocytes % 16.4 % (15.3-44.8); MPV 8.8 fL (7.6-11.3); RBC Red Blood Cell Count 3.97 M/uL (3.86-4.86)
[2019-06-26 07:26] LABS: ALT/SGPT 14 U/L (12-78); AST/SGOT 14 U/L (15-37); Albumin 2.6 g/dL (3.4-5.0); Alkaline Phosphatase 71 U/L (45-117); BUN Blood Urea Nitrogen 13 mg/dL (7-18); Bicarbonate 24 mmol/L (21-32); Bilirubin Total 0.3 mg/dL (0.2-1.0); Glucose Level 187 mg/dL (74-106); Protein, Total 7.6 g/dL (6.4-8.2); Sodium Level 138 mmol/L (136-145)
[2019-06-26] MEDS: CEFTRIAXONE/SWI 1gm 1 GM/10 ML SYR IV SCH ×2 (08:00→21:27)
[2019-06-26] MEDS: HYDROCORTISONE SUC 100 MG INJ IV SCH ×2 (08:01→21:25)
[2019-06-26] MEDS: NA CHLORIDE 0.9% 1,000 ML IV SCH ×2 (08:04→16:12)
[2019-06-26] MEDS ORDERED: CEFTRIAXONE 1 GM/NS 50 ML 1 GM/50 ML BAG IV SCH (09:00)
--- NOTE | 2019-06-26 09:14 | P.HP ---
Certification for Inpatient Patient admitted to: Inpatient With expected LOS: >2 Midnights Patient will require the following post-hospital care: Home Health Services Practitioner: I am a practitioner with admitting privileges, knowledge of patient current condition, hospital course, and medical plan of care. Services: Services provided to patient in accordance with Admission requirements found in Title 42 Section 412.3 of the Code of Federal Regulations Patient History Date of Service: 06/25/19 Reason for admission: Altered mental status/chest pain History of Present Illness: Patient is an 84-year-old female who came to the hospital after suffering a fall a couple of days ago. She was worked up in the emergency room with a CT trauma g. this revealed that she had 2 rib fractures on the left side. There was no evidence of a stroke. She did have some chronic ischemic changes. She was discharged from the hospital some pain medication. She has been taking some pain medication but has had ripped little relief. However, the family states that she was not acting like herself. She was having pain and she was still not behaving like she normally does. They brought her in because of her altered mentation. She has not been eating or drinking like she normally does. She complains of pain quite frequently. She lives at home with her son. At this time she will be admitted to the hospital for evaluation. Allergies No Known Allergies Allergy (Verified 08/30/15 15:20) Home Medications: Ferrous Fumarate [Hemocyte] 1 mg PO DAILY 07/16/13 Tramadol HCl [Ultram] 50 mg PO BIDP PRN #20 tablet 08/31/15 Aspirin [Aspir-Low] 81 mg PO DAILY 10/15/18 Brimonidine Tartrate/Timolol [Combigan 0.2%-0.5% Eye Drops] 5 ml EACH EYE DAILY 10/15/18 Clindamycin HCl 300 mg PO QID 10/15/18 Clopidogrel Bisulfate [Plavix] 1 tab PO DAILY 10/15/18 Colesevelam HCl 625 mg PO BID 10/15/18 Insulin Aspart [Novolog Flexpen] 8 units SQ TID 10/15/18 LORazepam [Lorazepam] 2 mg PO BID 10/15/18 Travoprost [Travatan Z] 1 gtts EACH EYE BEDTIME 10/15/18 Vortioxetine Hydrobromide [Brintellix] 20 mg PO DAILY 10/15/18 - Past Medical/Surgical History Has patient received pneumonia vaccine in the past: Yes Diabetic: Yes -: HTN, Depression -: fatigue, dementia -: chronic pain -: cervical disc disorder -: GERD -: hyperlipidemia, hypercholestermia -: IDDM type 2 -: COPD, -: Left hip sx -: tubal ligation -: Appy -: L Knee replacement - Family History Father Medical History: Diabetes Mother Medical History: Diabetes Sister Medical History: Kidney disease - Social History Smoking Status: Never smoker Alcohol use: No CD- Drugs: No Caffeine use: Yes Place of Residence: Home Review of Systems 10-point ROS is otherwise unremarkable Physical Examination - Vital Signs Temperature: 97.5 F Blood Pressure: 170/72 Pulse: 94 Respirations: 20 Pulse Ox (%): 94 - Physical Exam General: Alert, In no apparent distress, Confused HEENT: Atraumatic, PERRLA, Mucous membr. moist/pink, EOMI, Sclerae nonicteric Neck: Supple, 2+ carotid pulse no bruit, No LAD, Without JVD or thyroid abnormality Respiratory: Clear to auscultation bilaterally, Normal air movement, Other ( Pain on deep inspiration) Cardiovascular: Regular rate/rhythm, Normal S1 S2, Systolic murmur Gastrointestinal: Normal bowel sounds, Soft and benign, Non-distended, No tenderness Musculoskeletal: No clubbing, No swelling, No tenderness Integumentary: No rashes Neurological: Normal tone, Sensation intact, Cranial nerves 3-12 intact, Normal affect, Abnormal gait, Abnormal speech, Abnormal strength Lymphatics: No axilla or inguinal lymphadenopathy - Studies Laboratory Data (last 24 hrs) 06/25/19 16:10: Sodium 137, Potassium 4.2, BUN 19 H, Creatinine 0.84, Glucose 328 H 06/25/19 16:10: WBC 5.4, Hgb 8.0 L, Hct 26.2 L, Plt Count 236 Assessment & Plan - Problems (Diagnosis) (1) Altered mental status Current Visit: Yes Status: Acute (2) Hyperlipidemia Current Visit: No Status: Acute (3) Senile dementia Current Visit: No Status: Acute (4) Weakness generalized Current Visit: No Status: Acute (5) COPD exacerbation Onset Date: 08/31/15 Current Visit: No Status: Chronic (6) Diabetes Current Visit: No Status: Chronic (7) Essential (primary) hypertension Current Visit: No Status: Chronic (8) Fatigue Current Visit: No Status: Chronic (9) Frequent falls Current Visit: No Status: Chronic - Plan -IV hydration -IV antibiotics times 24-48 hours to see if any improvement in mentation and pending culture -cultures are pending -monitor renal function and electrolytes -MRI of the brain if mentation is not improved -check thyroid studies and cortisol studies -bed check in place -physical therapy evaluation once mentation is improved -discuss code status with family -pain control cautiously as this could be causing altered mentation Discharge Plan: Home Plan to discharge in: Greater than 2 days - Advance Directives Does patient have a Living Will: No Does patient have a Durable POA for Healthcare: No - Code Status/Comfort Care Code Status Assessed: Yes Code Status: Full Code Critical Care: No Time Spent Managing PTS Care (In Minutes): 45
[2019-06-26] MEDS ORDERED: GLUCAGON 1 MG/VIAL IM PRN (10:35)
[2019-06-26] MEDS ORDERED: D50W 25 GM/50 ML SYRINGE IV PRN (10:35)
--- NOTE | 2019-06-26 11:32 | P.PN ---
Subjective Date of Service: 06/26/19 Chief Complaint: Altered mental status/chest pain Patient seen and examined at bedside. Granddaughter at bedside. Chart reviewed and case discussed with nursing staff. No concerns or complaints this morning. Per granddaughter at bedside, patient with improved mentation almost back to baseline, It seems. Review of Systems 10-point ROS is otherwise unremarkable Physical Examination - Vital Signs Temperature: 97.5 F Blood Pressure: 170/72 Pulse: 94 Respirations: 16 Pulse Ox (%): 94 - Physical Exam General: Alert, In no apparent distress, Oriented x2 HEENT: Atraumatic, PERRLA, EOMI Neck: Supple, JVD not distended Respiratory: Clear to auscultation bilaterally, Normal air movement Cardiovascular: Regular rate/rhythm, Normal S1 S2 Gastrointestinal: Normal bowel sounds, No tenderness Musculoskeletal: No tenderness Integumentary: No rashes Neurological: Normal speech, Normal tone, Normal affect Lymphatics: No axilla or inguinal lymphadenopathy - Studies Laboratory Data (last 24 hrs) 06/25/19 16:10: Sodium 137, Potassium 4.2, BUN 19 H, Creatinine 0.84, Glucose 328 H 06/25/19 16:10: WBC 5.4, Hgb 8.0 L, Hct 26.2 L, Plt Count 236 Assessment And Plan - Current Problems (Diagnosis) (1) Altered mental status Current Visit: Yes Status: Acute Plan: Likely secondary to pain medication use after fracture versus infectious cause versus progression of dementia -mentation improving, per granddaughter at bedside. -patient currently unknown x2, this seems to be baseline. -continue to monitor mentation. If no improvement, may need to get MRI -continue antibiotics this time, cultures pending. If negative will discontinue antibiotics. Qualifiers: Altered mental status type: unspecified Qualified Code(s): R41.82 - Altered mental status, unspecified (2) Senile dementia Current Visit: No Status: Chronic Qualifiers: Dementia behavioral disturbance: without behavioral disturbance Qualified Code(s): F03.90 - Unspecified dementia without behavioral disturbance (3) Rib fracture Current Visit: No Status: Chronic Plan: Subacute, likely secondary to frequent falls. -will continue pain control as needed. Will try to avoid too much pain medication as this could be contributing to altered mentation. -if no improvement in pain, will try lidocaine patch to see if this helps symptoms. Qualifiers: Encounter type: sequela Rib fracture type: multiple ribs Fracture type: closed Laterality: unspecified laterality Qualified Code(s): S22.49XS - Multiple fractures of ribs, unspecified side, sequela (4) GERD (gastroesophageal reflux disease) Current Visit: No Status: Chronic Qualifiers: Esophagitis presence: esophagitis presence not specified Qualified Code(s) : K21.9 - Gastro-esophageal reflux disease without esophagitis (5) Hyperlipidemia Current Visit: No Status: Chronic Qualifiers: Hyperlipidemia type: unspecified Qualified Code(s): E78.5 - Hyperlipidemia , unspecified (6) Diabetes Current Visit: No Status: Chronic Plan: Accu-Cheks and mild sliding scale insulin. We will restart home insulin as well. Continue to monitor and adjust as needed. Qualifiers: Diabetes mellitus type: type 2 Diabetes mellitus mcc insulin use: with plate shear operator use Diabetes mellitus complication status: with hyperglycemia Qualified Code(s): E11.65 - Type 2 diabetes mellitus with hyperglycemia; Z79.4 - alf (current) use of insulin (7) Essential (primary) hypertension Current Visit: No Status: Chronic Plan: Resume home medications (8) Frequent falls Current Visit: No Status: Chronic Plan: We will get physical therapy evaluation once more medically stable. - Plan DVT prophylaxis: Will hold blood thinners due to frequent falls. GI prophylaxis: Protonix, home medication Diet: Diabetic diet Disposition: Pending symptomatic improvement. Also pending physical therapy
[2019-06-26] MEDS: INSULIN -REGULAR HUMAN 50 UNIT/0.5 ML ML SQ SCH ×3 (11:39→21:26)
[2019-06-26] MEDS: LIDOCAINE 5% PATCH TOP SCH (14:05)
[2019-06-26] MEDS: COLESEVELAM HCL PO SCH (21:00)
[2019-06-26] MEDS: ATORVASTATIN 10 MG TAB PO SCH (21:26)
[2019-06-27] MEDS: MORPHINE 2 MG/ML SYR IV PRN ×2 (00:55→05:32)
[2019-06-27] MEDS ORDERED: HYDROMORPHONE HCL 0.5 MG/0.5 ML INJ IV ONE (02:21)
[2019-06-27] MEDS: NA CHLORIDE 0.9% 1,000 ML IV SCH ×3 (02:57→23:42)
[2019-06-27] MEDS: PANTOPRAZOLE 40MG TABLET PO SCH (05:32)
[2019-06-27] MEDS: INSULIN -REGULAR HUMAN 50 UNIT/0.5 ML ML SQ SCH ×4 (07:30→21:20)
--- NOTE | 2019-06-27 08:07 | EKG ---
Test Date: 2019-06-27 Test Time: 02:29:59 It Consulting Director: JESSIKA MEASUREMENT RESULTS: Intervals: Rate: 104 SD: 176 QRSD: 84 QT: 358 QTc: 470 [place]: P: 70 SD: 176 QRS: 62 T: 76 INTERPRETIVE STATEMENTS: Sinus tachycardia Otherwise normal ECG Compared to ECG 08/31/2015 19:09:50 Sinus rhythm no longer present Myocardial infarct finding no longer present Electronically Signed On 06-27-19 08:06:41 CDT by Nirav Whitney
[2019-06-27] MEDS: Insulin Degludec [Tresiba Flextouch U-100] SQ SCH (09:00)
[2019-06-27] MEDS: HOME MED 1 EA UNK (Vortioxetine Hydrobromide [Trintellix] 1 TAB) PO SCH (09:00)
[2019-06-27] MEDS: COLESEVELAM HCL PO SCH ×2 (09:00→21:00)
--- NOTE | 2019-06-27 09:01 | RAD REPORT ---
EXAM DESCRIPTION: Tavo Single View06/27/2019 2:47 am CLINICAL HISTORY: Chest pain COMPARISON: June 25, 2019 FINDINGS: Small left pleural effusion is suspected. The left basilar opacity may represent atelecta sis or pneumonia. Multiple subacute left rib fractures. The right lung appears clear of acute infiltrate. The heart is mildly enlarged
[2019-06-27] MEDS: FERROUS SULFATE 325 MG TAB PO SCH (09:49)
[2019-06-27] MEDS: HYDROCORTISONE SUC 100 MG INJ IV SCH ×2 (09:49→21:20)
[2019-06-27] MEDS: CEFTRIAXONE/SWI 1gm 1 GM/10 ML SYR IV SCH ×2 (09:49→21:21)
--- NOTE | 2019-06-27 11:25 | P.PN ---
Subjective Date of Service: 06/27/19 Chief Complaint: Altered mental status/chest pain Subjective: No new changes Patient seen and examined at bedside. Granddaughter at bedside. Chart reviewed and case discussed with nursing staff. No concerns or complaints this morning. Patient seems to be with intermittent episodes of confusion this morning. Unsure if this is baseline but she is alert oriented times 2 though. Review of Systems 10-point ROS is otherwise unremarkable Physical Examination - Vital Signs Temperature: 97.9 F Blood Pressure: 174/77 Pulse: 94 Respirations: 16 Pulse Ox (%): 98 - Physical Exam General: Alert, In no apparent distress, Oriented x2 HEENT: Atraumatic, PERRLA, EOMI Neck: Supple, JVD not distended Respiratory: Clear to auscultation bilaterally, Normal air movement Cardiovascular: Regular rate/rhythm, Normal S1 S2 Gastrointestinal: Normal bowel sounds, No tenderness Musculoskeletal: No tenderness Integumentary: No rashes Neurological: Normal speech, Normal tone, Normal affect Lymphatics: No axilla or inguinal lymphadenopathy - Studies Microbiology Data (last 24 hrs): 06/25/19 16:30 Clean Catch Urine [place] Count - Final >100,000 CFU/ML. 06/25/19 16:30 Clean Catch Urine - Final MIXED [place]. Assessment And Plan - Current Problems (Diagnosis) (1) Altered mental status Current Visit: Yes Status: Acute Plan: Likely secondary to pain medication use after fracture versus infectious cause versus progression of dementia -mentation improving, per granddaughter at bedside. But with continued episodes of intermittent confusion -patient currently unknown x2, this seems to be baseline. -continue to monitor mentation. If no improvement, may need to get MRI -continue antibiotics this time, cultures negative at this time. The chest x- ray with questionable left basilar atelectasis versus pneumonia Qualifiers: Altered mental status type: unspecified Qualified Code(s): R41.82 - Altered mental status, unspecified (2) Senile dementia Current Visit: No Status: Chronic Qualifiers: Dementia behavioral disturbance: without behavioral disturbance Qualified Code(s): F03.90 - Unspecified dementia without behavioral disturbance (3) Rib fracture Current Visit: No Status: Chronic Plan: Subacute, likely secondary to frequent falls. -will continue pain control as needed. Will try to avoid too much pain medication as this could be contributing to altered mentation. -if no improvement in pain, will try lidocaine patch to see if this helps symptoms. Qualifiers: Encounter type: sequela Rib fracture type: multiple ribs Fracture type: closed Laterality: unspecified laterality Qualified Code(s): S22.49XS - Multiple fractures of ribs, unspecified side, sequela (4) GERD (gastroesophageal reflux disease) Current Visit: No Status: Chronic Qualifiers: Esophagitis presence: esophagitis presence not specified Qualified Code(s) : K21.9 - Gastro-esophageal reflux disease without esophagitis (5) Hyperlipidemia Current Visit: No Status: Chronic Qualifiers: Hyperlipidemia type: unspecified Qualified Code(s): E78.5 - Hyperlipidemia , unspecified (6) Diabetes Current Visit: No Status: Chronic Plan: Accu-Cheks and mild sliding scale insulin. We will restart home insulin as well. Continue to monitor and adjust as needed. Qualifiers: Diabetes mellitus type: type 2 Diabetes mellitus tank terminal gauger insulin use: with residential use Diabetes mellitus complication status: with hyperglycemia Qualified Code(s): E11.65 - Type 2 diabetes mellitus with hyperglycemia; Z79.4 - extermination inspector (current) use of insulin (7) Essential (primary) hypertension Current Visit: No Status: Chronic Plan: Resume home medications (8) Frequent falls Current Visit: No Status: Chronic Plan: We will get physical therapy evaluation once more medically stable. - Plan DVT prophylaxis: Will hold blood thinners due to frequent falls. GI prophylaxis: Protonix, home medication Diet: Diabetic diet Disposition: Pending symptomatic improvement. Also pending physical therapy. She may also require social work consult for disposition.
[2019-06-27] MEDS ORDERED: HYDRALAZINE HCL 20 MG/ML VIAL IV PRN (16:04)
[2019-06-27] MEDS: LIDOCAINE 5% PATCH TOP SCH (16:40)
[2019-06-27] MEDS: ATORVASTATIN 10 MG TAB PO SCH (21:20)
[2019-06-28] MEDS: ACETAMINOPHEN 500 MG TAB PO PRN (04:23)
[2019-06-28] MEDS: PANTOPRAZOLE 40MG TABLET PO SCH (05:40)
[2019-06-28] MEDS: NA CHLORIDE 0.9% 1,000 ML IV SCH ×3 (05:40→17:09)
[2019-06-28] MEDS: Insulin Degludec [Tresiba Flextouch U-100] SQ SCH (08:00)
[2019-06-28] MEDS: HYDROCORTISONE SUC 100 MG INJ IV SCH ×2 (08:00→20:48)
[2019-06-28] MEDS: INSULIN -REGULAR HUMAN 50 UNIT/0.5 ML ML SQ SCH ×4 (08:01→20:46)
[2019-06-28] MEDS: FERROUS SULFATE 325 MG TAB PO SCH (08:01)
[2019-06-28] MEDS: CEFTRIAXONE/SWI 1gm 1 GM/10 ML SYR IV SCH ×2 (08:02→20:48)
[2019-06-28] MEDS: COLESEVELAM HCL PO SCH ×2 (08:04→20:58)
[2019-06-28] MEDS: HOME MED 1 EA UNK (Vortioxetine Hydrobromide [Trintellix] 1 TAB) PO SCH (08:04)
[2019-06-28] MEDS: MORPHINE 2 MG/ML SYR IV PRN (09:20)
[2019-06-28 11:35] LABS: Absolute Lymphocytes (CBC) 0.7 K/uL (0.7-4.9); Basophils % 0.3 % (0-1.3); Hematocrit 26.9 % (36.0-45.0); Lymphocytes % 10.9 % (15.3-44.8); MPV 8.8 fL (7.6-11.3); RBC Red Blood Cell Count 3.85 M/uL (3.86-4.86)
[2019-06-28 11:38] LABS: BUN Blood Urea Nitrogen 10 mg/dL (7-18); Bicarbonate 29 mmol/L (21-32); Glucose Level 270 mg/dL (74-106); Potassium 3.1 mmol/L (3.5-5.1); Sodium Level 139 mmol/L (136-145)
--- NOTE | 2019-06-28 12:27 | P.PN ---
Subjective Date of Service: 06/28/19 Chief Complaint: Altered mental status/chest pain Subjective: Improving Patient seen and examined at bedside. No family at bedside. Chart reviewed and case discussed with nursing staff. No concerns or complaints this morning. Patient more awake and alert this morning. She is alert and oriented times 2, able to converse more. Worked with physical therapy this morning she denies any complaints or pain at this time Review of Systems 10-point ROS is otherwise unremarkable Physical Examination - Vital Signs Temperature: 98.2 F Blood Pressure: 166/76 Pulse: 91 Respirations: 18 Pulse Ox (%): 95 - Physical Exam General: Alert, In no apparent distress, Oriented x2, Cachectic HEENT: Atraumatic, PERRLA, EOMI Neck: Supple, JVD not distended Respiratory: Clear to auscultation bilaterally, Normal air movement Cardiovascular: Regular rate/rhythm, Normal S1 S2 Gastrointestinal: Normal bowel sounds, No tenderness Musculoskeletal: No tenderness Integumentary: No rashes Neurological: Normal speech, Normal tone, Normal affect Lymphatics: No axilla or inguinal lymphadenopathy - Studies Microbiology Data (last 24 hrs): 06/25/19 16:30 Clean Catch Urine [place] Count - Final >100,000 CFU/ML. 06/25/19 16:30 Clean Catch Urine - Final MIXED [place]. Assessment And Plan - Current Problems (Diagnosis) (1) Altered mental status Current Visit: Yes Status: Acute Plan: Likely secondary to pain medication use after fracture versus infectious cause versus progression of dementia -mentation improving -patient currently alert oriented x2, this seems to be baseline. -continue to monitor mentation. If worsening, may need to get MRI -continue antibiotics this time, cultures negative at this time. The chest x- ray with questionable left basilar atelectasis versus pneumonia Qualifiers: Altered mental status type: unspecified Qualified Code(s): R41.82 - Altered mental status, unspecified (2) Senile dementia Current Visit: No Status: Chronic Qualifiers: Dementia behavioral disturbance: without behavioral disturbance Qualified Code(s): F03.90 - Unspecified dementia without behavioral disturbance (3) Rib fracture Current Visit: No Status: Chronic Plan: Subacute, likely secondary to frequent falls. -will continue pain control as needed. Will try to avoid too much pain medication as this could be contributing to altered mentation. -no complaints of pain this morning Qualifiers: Encounter type: sequela Rib fracture type: multiple ribs Fracture type: closed Laterality: unspecified laterality Qualified Code(s): S22.49XS - Multiple fractures of ribs, unspecified side, sequela (4) GERD (gastroesophageal reflux disease) Current Visit: No Status: Chronic Qualifiers: Esophagitis presence: esophagitis presence not specified Qualified Code(s) : K21.9 - Gastro-esophageal reflux disease without esophagitis (5) Hyperlipidemia Current Visit: No Status: Chronic Qualifiers: Hyperlipidemia type: unspecified Qualified Code(s): E78.5 - Hyperlipidemia , unspecified (6) Diabetes Current Visit: No Status: Chronic Plan: Accu-Cheks and mild sliding scale insulin. We will restart home insulin as well. Continue to monitor and adjust as needed. Qualifiers: Diabetes mellitus type: type 2 Diabetes mellitus long term care social worker insulin use: with longterm use Diabetes mellitus complication status: with hyperglycemia Qualified Code(s): E11.65 - Type 2 diabetes mellitus with hyperglycemia; Z79.4 - long term care pharmacist (current) use of insulin (7) Essential (primary) hypertension Current Visit: No Status: Chronic Plan: Resume home medications (8) Frequent falls Current Visit: No Status: Chronic Plan: Now working with physical therapy. Patient will benefit from [facility]p facility for further physical rehabilitation and therapy. - Plan DVT prophylaxis: Will hold blood thinners due to frequent falls. GI prophylaxis: Protonix, home medication Diet: Diabetic diet Disposition: Working with physical therapy, medically improving. Social work on board for possible usp facility placement. Family chose [facility], pending. We will be able to discharge patient to a usp facility once accepted Discharge Plan: [facility] (Once accepted)
[2019-06-28] MEDS ORDERED: HYDRALAZINE HCL 20 MG/ML VIAL IV ONE (16:07)
[2019-06-28] MEDS: LIDOCAINE 5% PATCH TOP SCH (16:36)
[2019-06-28] MEDS ORDERED: WATER FOR INJ,STERILE 10 ML ONE (20:41)
[2019-06-28] MEDS: ATORVASTATIN 10 MG TAB PO SCH (20:57)
[2019-06-28] MEDS: MORPHINE 4 MG/ML SYR IV PRN (21:01)
[2019-06-29] MEDS: NA CHLORIDE 0.9% 1,000 ML IV SCH ×2 (02:05→05:00)
[2019-06-29] MEDS: PANTOPRAZOLE 40MG TABLET PO SCH (05:28)
[2019-06-29] MEDS: INSULIN -REGULAR HUMAN 50 UNIT/0.5 ML ML SQ SCH ×4 (07:30→20:28)
[2019-06-29] MEDS: MORPHINE 4 MG/ML SYR IV PRN (07:50)
[2019-06-29 08:47] LABS: Absolute Lymphocytes (CBC) 1.7 K/uL (0.7-4.9); Basophils % 0.7 % (0-1.3); Hematocrit 27.8 % (36.0-45.0); Lymphocytes % 25.5 % (15.3-44.8); MPV 8.8 fL (7.6-11.3); RBC Red Blood Cell Count 4.01 M/uL (3.86-4.86)
[2019-06-29] MEDS: COLESEVELAM HCL PO SCH ×2 (09:00→20:30)
[2019-06-29] MEDS: CEFTRIAXONE/SWI 1gm 1 GM/10 ML SYR IV SCH (09:00)
[2019-06-29] MEDS: HYDROCORTISONE SUC 100 MG INJ IV SCH (09:00)
[2019-06-29] MEDS: HOME MED 1 EA UNK (Vortioxetine Hydrobromide [Trintellix] 1 TAB) PO SCH (09:00)
[2019-06-29] MEDS: FERROUS SULFATE 325 MG TAB PO SCH (09:00)
[2019-06-29 09:02] LABS: BUN Blood Urea Nitrogen 8 mg/dL (7-18); Bicarbonate 27 mmol/L (21-32); Glucose Level 148 mg/dL (74-106); Potassium 4.7 mmol/L (3.5-5.1); Sodium Level 144 mmol/L (136-145)
--- NOTE | 2019-06-29 10:46 | P.PN ---
Subjective Date of Service: 06/29/19 Chief Complaint: Altered mental status/chest pain Subjective: No C/O voiced Patient seen and examined at bedside. No family at bedside. Chart reviewed and case discussed with nursing staff. No concerns or complaints this morning. Patient more awake and alert this morning. She is alert and oriented times 2, able to converse more. she denies any complaints or pain at this time Review of Systems 10-point ROS is otherwise unremarkable Physical Examination - Vital Signs Temperature: 98.2 F Blood Pressure: 149/76 Pulse: 87 Respirations: 20 Pulse Ox (%): 96 - Physical Exam General: Alert, In no apparent distress, Oriented x2 HEENT: Atraumatic, PERRLA, EOMI Neck: Supple, JVD not distended Respiratory: Clear to auscultation bilaterally, Normal air movement Cardiovascular: Regular rate/rhythm, Normal S1 S2 Gastrointestinal: Normal bowel sounds, No tenderness Musculoskeletal: No tenderness Integumentary: No rashes Neurological: Normal speech, Normal tone, Normal affect Lymphatics: No axilla or inguinal lymphadenopathy Assessment And Plan - Current Problems (Diagnosis) (1) Altered mental status Current Visit: Yes Status: Acute Plan: Likely secondary to pain medication use after fracture versus infectious cause versus progression of dementia -mentation improving -patient currently alert oriented x2, this seems to be baseline. -continue to monitor mentation. If worsening, may need to get MRI -continue antibiotics this time, cultures negative at this time. The chest x- ray with questionable left basilar atelectasis versus pneumonia Qualifiers: Altered mental status type: unspecified Qualified Code(s): R41.82 - Altered mental status, unspecified (2) Senile dementia Current Visit: No Status: Chronic Qualifiers: Dementia behavioral disturbance: without behavioral disturbance Qualified Code(s): F03.90 - Unspecified dementia without behavioral disturbance (3) Rib fracture Current Visit: No Status: Chronic Plan: Subacute, likely secondary to frequent falls. -will continue pain control as needed. Will try to avoid too much pain medication as this could be contributing to altered mentation. -no complaints of pain this morning Qualifiers: Encounter type: sequela Rib fracture type: multiple ribs Fracture type: closed Laterality: unspecified laterality Qualified Code(s): S22.49XS - Multiple fractures of ribs, unspecified side, sequela (4) GERD (gastroesophageal reflux disease) Current Visit: No Status: Chronic Qualifiers: Esophagitis presence: esophagitis presence not specified Qualified Code(s) : K21.9 - Gastro-esophageal reflux disease without esophagitis (5) Hyperlipidemia Current Visit: No Status: Chronic Qualifiers: Hyperlipidemia type: unspecified Qualified Code(s): E78.5 - Hyperlipidemia , unspecified (6) Diabetes Current Visit: No Status: Chronic Plan: Accu-Cheks and mild sliding scale insulin. We will restart home insulin as well. Continue to monitor and adjust as needed. Qualifiers: Diabetes mellitus type: type 2 Diabetes mellitus jail insulin use: with exterminator termite use Diabetes mellitus complication status: with hyperglycemia Qualified Code(s): E11.65 - Type 2 diabetes mellitus with hyperglycemia; Z79.4 - halfway (current) use of insulin (7) Essential (primary) hypertension Current Visit: No Status: Chronic Plan: Resume home medications (8) Frequent falls Current Visit: No Status: Chronic Plan: Now working with physical therapy. Patient will benefit from sn[facility] facility for further physical rehabilitation and therapy. - Plan DVT prophylaxis: Will hold blood thinners due to frequent falls. GI prophylaxis: Protonix, home medication Diet: Diabetic diet Disposition: Working with physical therapy, medically improving. Social work on board for possible snf facility placement. Family chose [facility], pending. We will be able to discharge patient to a snf facility once accepted
[2019-06-29] MEDS: Insulin Degludec [Tresiba Flextouch U-100] SQ SCH (10:53)
[2019-06-29] MEDS: ONDANSETRON 4 MG (ODT) TAB PO PRN (13:33)
--- NOTE | 2019-06-29 17:36 | EKG ---
Test Date: 2019-06-29 Test Time: 07:46:08 Senior Executive Compensation Analyst: WILLIAM MEASUREMENT RESULTS: Intervals: Rate: 104 IA: 152 QRSD: 72 QT: 350 QTc: 460 [place]: P: 68 IA: 152 QRS: 56 T: 59 INTERPRETIVE STATEMENTS: Sinus tachycardia with premature atrial complexes Possible Left atrial enlargement Nonspecific T wave abnormality Abnormal ECG Compared to ECG 06/27/2019 02:29:59 Atrial premature complex(es) now present T-wave abnormality now present Electronically Signed On 06-29-19 17:33:58 CDT by Nirav Whitney
[2019-06-29] MEDS: LIDOCAINE 5% PATCH TOP SCH (17:42)
[2019-06-29] MEDS: ATORVASTATIN 10 MG TAB PO SCH (20:29)
[2019-06-30 04:38] LABS: Magnesium 1.8 mg/dL (1.8-2.4); Phosphorus 3.5 mg/dL (2.5-4.9)
[2019-06-30] MEDS: PANTOPRAZOLE 40MG TABLET PO SCH (05:28)
[2019-06-30] MEDS: INSULIN -REGULAR HUMAN 50 UNIT/0.5 ML ML SQ SCH ×4 (07:30→20:44)
[2019-06-30] MEDS: MAGNESIUM OXIDE 400 MG TAB PO SCH (08:50)
[2019-06-30] MEDS: FERROUS SULFATE 325 MG TAB PO SCH ×2 (08:50→08:56)
[2019-06-30] MEDS: COLESEVELAM HCL PO SCH ×2 (08:51→20:45)
[2019-06-30] MEDS: Insulin Degludec [Tresiba Flextouch U-100] SQ SCH (08:51)
[2019-06-30] MEDS: HOME MED 1 EA UNK (Vortioxetine Hydrobromide [Trintellix] 1 TAB) PO SCH (08:52)
--- NOTE | 2019-06-30 14:28 | P.PN ---
Subjective Date of Service: 06/30/19 Chief Complaint: Altered mental status/chest pain Patient seen and examined at bedside. No family at bedside. Chart reviewed and case discussed with nursing staff. No concerns or complaints this morning. Patient more awake and alert this morning. She is alert and oriented times 2, able to converse more. she denies any complaints or pain at this time Review of Systems 10-point ROS is otherwise unremarkable Physical Examination - Vital Signs Temperature: 97.7 F Blood Pressure: 158/69 Pulse: 94 Respirations: 17 Pulse Ox (%): 95 - Physical Exam General: Alert, In no apparent distress HEENT: Atraumatic, PERRLA, EOMI Neck: Supple, JVD not distended Respiratory: Clear to auscultation bilaterally, Normal air movement Cardiovascular: Regular rate/rhythm, Normal S1 S2 Gastrointestinal: Normal bowel sounds, No tenderness Musculoskeletal: No tenderness Integumentary: No rashes Neurological: Normal speech, Normal tone, Normal affect Lymphatics: No axilla or inguinal lymphadenopathy Assessment And Plan - Current Problems (Diagnosis) (1) Altered mental status Current Visit: Yes Status: Acute Plan: Likely secondary to pain medication use after fracture versus infectious cause versus progression of dementia -mentation improving -patient currently alert oriented x2, this seems to be baseline. -continue to monitor mentation. If worsening, may need to get MRI -continue antibiotics this time, cultures negative at this time. The chest x- ray with questionable left basilar atelectasis versus pneumonia Qualifiers: Altered mental status type: unspecified Qualified Code(s): R41.82 - Altered mental status, unspecified (2) Senile dementia Current Visit: No Status: Chronic Qualifiers: Dementia behavioral disturbance: without behavioral disturbance Qualified Code(s): F03.90 - Unspecified dementia without behavioral disturbance (3) Rib fracture Current Visit: No Status: Chronic Plan: Subacute, likely secondary to frequent falls. -will continue pain control as needed. Will try to avoid too much pain medication as this could be contributing to altered mentation. -no complaints of pain this morning Qualifiers: Encounter type: sequela Rib fracture type: multiple ribs Fracture type: closed Laterality: unspecified laterality Qualified Code(s): S22.49XS - Multiple fractures of ribs, unspecified side, sequela (4) GERD (gastroesophageal reflux disease) Current Visit: No Status: Chronic Qualifiers: Esophagitis presence: esophagitis presence not specified Qualified Code(s) : K21.9 - Gastro-esophageal reflux disease without esophagitis (5) Hyperlipidemia Current Visit: No Status: Chronic Qualifiers: Hyperlipidemia type: unspecified Qualified Code(s): E78.5 - Hyperlipidemia , unspecified (6) Diabetes Current Visit: No Status: Chronic Plan: Accu-Cheks and mild sliding scale insulin. We will restart home insulin as well. Continue to monitor and adjust as needed. Qualifiers: Diabetes mellitus type: type 2 Diabetes mellitus machine long goods helper insulin use: with machine long goods helper use Diabetes mellitus complication status: with hyperglycemia Qualified Code(s): E11.65 - Type 2 diabetes mellitus with hyperglycemia; Z79.4 - long term care pharmacist (current) use of insulin (7) Essential (primary) hypertension Current Visit: No Status: Chronic Plan: Resume home medications (8) Frequent falls Current Visit: No Status: Chronic Plan: Now working with physical therapy. Patient will benefit from assisted facility for further physical rehabilitation and therapy. - Plan DVT prophylaxis: Will hold blood thinners due to frequent falls. GI prophylaxis: Protonix, home medication Diet: Diabetic diet Disposition: Working with physical therapy, medically improving. Social work on board for possible assisted facility placement. Initially pt chose [facility], but would like [facility] at this time. We will be able to discharge patient to a facility once accepted
[2019-06-30] MEDS: LIDOCAINE 5% PATCH TOP SCH (17:05)
[2019-06-30] MEDS: ATORVASTATIN 10 MG TAB PO SCH (20:44)
[2019-06-30] MEDS: LORAZEPAM 0.5 MG TABLET PO PRN (22:28)
[2019-07-01] MEDS: PANTOPRAZOLE 40MG TABLET PO SCH (05:53)
[2019-07-01] MEDS: TRAMADOL HCL 50 MG TAB PO PRN (06:07)
[2019-07-01] MEDS: INSULIN -REGULAR HUMAN 50 UNIT/0.5 ML ML SQ SCH ×4 (07:30→21:00)
[2019-07-01] MEDS: MAGNESIUM OXIDE 400 MG TAB PO SCH (08:07)
[2019-07-01] MEDS: FERROUS SULFATE 325 MG TAB PO SCH (08:07)
[2019-07-01] MEDS: Insulin Degludec [Tresiba Flextouch U-100] SQ SCH (08:19)
[2019-07-01] MEDS: COLESEVELAM HCL PO SCH ×2 (08:22→21:00)
[2019-07-01] MEDS: HOME MED 1 EA UNK (Vortioxetine Hydrobromide [Trintellix] 1 TAB) PO SCH (08:22)
--- NOTE | 2019-07-01 11:52 | P.PN ---
Subjective Date of Service: 07/01/19 Chief Complaint: Altered mental status/chest pain Subjective: No new changes Patient seen and examined at bedside. No family at bedside. Chart reviewed and case discussed with nursing staff. No concerns or complaints this morning. Patient more awake and alert this morning. She is alert and oriented times 2, able to converse more. she denies any complaints or pain at this time Review of Systems 10-point ROS is otherwise unremarkable Physical Examination - Vital Signs Temperature: 98.7 F Blood Pressure: 129/77 Pulse: 93 Respirations: 20 Pulse Ox (%): 99 - Physical Exam General: Alert, In no apparent distress, Oriented x2 HEENT: Atraumatic, PERRLA, EOMI Neck: Supple, JVD not distended Respiratory: Clear to auscultation bilaterally, Normal air movement Cardiovascular: Regular rate/rhythm, Normal S1 S2 Gastrointestinal: Normal bowel sounds, No tenderness Musculoskeletal: No tenderness Integumentary: No rashes Neurological: Normal speech, Normal tone, Normal affect Lymphatics: No axilla or inguinal lymphadenopathy Assessment And Plan - Current Problems (Diagnosis) (1) Altered mental status Current Visit: Yes Status: Acute Plan: Likely secondary to pain medication use after fracture versus infectious cause versus progression of dementia -mentation improving -patient currently alert oriented x2, this seems to be baseline. -continue to monitor mentation. If worsening, may need to get MRI -continue antibiotics this time, cultures negative at this time. The chest x- ray with questionable left basilar atelectasis versus pneumonia Qualifiers: Altered mental status type: unspecified Qualified Code(s): R41.82 - Altered mental status, unspecified (2) Senile dementia Current Visit: No Status: Chronic Qualifiers: Dementia behavioral disturbance: without behavioral disturbance Qualified Code(s): F03.90 - Unspecified dementia without behavioral disturbance (3) Rib fracture Current Visit: No Status: Chronic Plan: Subacute, likely secondary to frequent falls. -will continue pain control as needed. Will try to avoid too much pain medication as this could be contributing to altered mentation. -no complaints of pain this morning Qualifiers: Encounter type: sequela Rib fracture type: multiple ribs Fracture type: closed Laterality: unspecified laterality Qualified Code(s): S22.49XS - Multiple fractures of ribs, unspecified side, sequela (4) GERD (gastroesophageal reflux disease) Current Visit: No Status: Chronic Qualifiers: Esophagitis presence: esophagitis presence not specified Qualified Code(s) : K21.9 - Gastro-esophageal reflux disease without esophagitis (5) Hyperlipidemia Current Visit: No Status: Chronic Qualifiers: Hyperlipidemia type: unspecified Qualified Code(s): E78.5 - Hyperlipidemia , unspecified (6) Diabetes Current Visit: No Status: Chronic Plan: Accu-Cheks and mild sliding scale insulin. We will restart home insulin as well. Continue to monitor and adjust as needed. Qualifiers: Diabetes mellitus type: type 2 Diabetes mellitus prison insulin use: with prison use Diabetes mellitus complication status: with hyperglycemia Qualified Code(s): E11.65 - Type 2 diabetes mellitus with hyperglycemia; Z79.4 - terminal computer operator (current) use of insulin (7) Essential (primary) hypertension Current Visit: No Status: Chronic Plan: Resume home medications (8) Frequent falls Current Visit: No Status: Chronic Plan: Now working with physical therapy. Patient will benefit from senior living facility for further physical rehabilitation and therapy. - Plan DVT prophylaxis: Will hold blood thinners due to frequent falls. GI prophylaxis: Protonix, home medication Diet: Diabetic diet Disposition: Working with physical therapy, medically improving. Social work on board for possible senior living facility placement. Initially pt chose [facility], but would like [facility] at this time. We will be able to discharge patient to a facility once accepted
[2019-07-01] MEDS: LIDOCAINE 5% PATCH TOP SCH (17:28)
[2019-07-01] MEDS: ATORVASTATIN 10 MG TAB PO SCH (21:30)
[2019-07-01] MEDS: LORAZEPAM 0.5 MG TABLET PO PRN (21:30)
[2019-07-02] MEDS: TRAMADOL HCL 50 MG TAB PO PRN (04:28)
[2019-07-02] MEDS: PANTOPRAZOLE 40MG TABLET PO SCH (05:56)
[2019-07-02] MEDS: INSULIN -REGULAR HUMAN 50 UNIT/0.5 ML ML SQ SCH ×4 (07:30→21:08)
[2019-07-02] MEDS: HOME MED 1 EA UNK (Vortioxetine Hydrobromide [Trintellix] 1 TAB) PO SCH (07:31)
[2019-07-02] MEDS: COLESEVELAM HCL PO SCH ×2 (07:31→21:00)
[2019-07-02] MEDS: Insulin Degludec [Tresiba Flextouch U-100] SQ SCH (08:16)
[2019-07-02] MEDS: MAGNESIUM OXIDE 400 MG TAB PO SCH (08:17)
[2019-07-02] MEDS: FERROUS SULFATE 325 MG TAB PO SCH ×2 (08:17→08:26)
--- NOTE | 2019-07-02 12:30 | P.DS ---
Admission Date: 07/01/19 Discharge Date: 07/02/19 Disposition: TRANSFER TO SKILLED NURSING Discharge Condition: FAIR Reason for Admission: Altered mental status/chest pain - Problems (1) Altered mental status Current Visit: Yes Status: Acute Qualifiers: Altered mental status type: unspecified Qualified Code(s): R41.82 - Altered mental status, unspecified (2) Senile dementia Current Visit: No Status: Chronic Qualifiers: Dementia behavioral disturbance: without behavioral disturbance Qualified Code(s): F03.90 - Unspecified dementia without behavioral disturbance (3) Rib fracture Current Visit: No Status: Chronic Qualifiers: Encounter type: sequela Rib fracture type: multiple ribs Fracture type: closed Laterality: unspecified laterality Qualified Code(s): S22.49XS - Multiple fractures of ribs, unspecified side, sequela (4) GERD (gastroesophageal reflux disease) Current Visit: No Status: Chronic Qualifiers: Esophagitis presence: esophagitis presence not specified Qualified Code(s) : K21.9 - Gastro-esophageal reflux disease without esophagitis (5) Hyperlipidemia Current Visit: No Status: Chronic Qualifiers: Hyperlipidemia type: unspecified Qualified Code(s): E78.5 - Hyperlipidemia , unspecified (6) Diabetes Current Visit: No Status: Chronic Qualifiers: Diabetes mellitus type: type 2 Diabetes mellitus termite renewal inspector insulin use: with retirement use Diabetes mellitus complication status: with hyperglycemia Qualified Code(s): E11.65 - Type 2 diabetes mellitus with hyperglycemia; Z79.4 - long term care phlebotomist (current) use of insulin (7) Essential (primary) hypertension Current Visit: No Status: Chronic (8) Frequent falls Current Visit: No Status: Chronic Brief History of Present Illness: Patient is an 84-year-old female who came to the hospital after suffering a fall a couple of days ago. She was worked up in the emergency room with a CT trauma g. this revealed that she had 2 rib fractures on the left side. There was no evidence of a stroke. She did have some chronic ischemic changes. She was discharged from the hospital some pain medication. She has been taking some pain medication but has had ripped little relief. However, the family states that she was not acting like herself. She was having pain and she was still not behaving like she normally does. They brought her in because of her altered mentation. She has not been eating or drinking like she normally does. She complains of pain quite frequently. She lives at home with her son. At this time she will be admitted to the hospital for evaluation. Hospital Course: Patient was admitted for altered mental status likely secondary to pain medication versus infectious causes versus her progression of dementia. Her mentation slowly improved, returned back to baseline. She did receive IV antibiotics throughout the stay for possible UTI as well as a possible pneumonia. Slowly her symptoms improved, she worked up more with physical therapy. Social work was consulted for discharge disposition/placement. Initially, family shows [facility]. Then decided that [facility]. Unfortunately, patient was denied by her insurance for inpatient rehab. Appeared appear was done and unfortunately she was still denied by the insurance. Patient was accepted in a [facility] facility, [facility]. Once family makes the decision, patient will be ready for discharge to the facility. Her discharge was delayed due to the family unable to make a decision. She otherwise remained hemodynamically stable throughout the stay. Her diagnoses and treatment plan was extensively discussed with her along with her family members at bedside valve verbalized understanding. She was then discharged to the facility once accepted and decision was made in a safe and stable manner. Vital Signs/Physical Exam: Temp Pulse Resp BP Pulse Ox 97.8 F 94 H 20 148/64 H 96 07/02/19 08:00 07/02/19 08:00 07/02/19 08:00 07/02/19 08:00 07/02/19 08:00 General: Alert, In no apparent distress, Oriented x2, Cachectic HEENT: Atraumatic, PERRLA, EOMI Neck: Supple, JVD not distended Respiratory: Clear to auscultation bilaterally, Normal air movement Cardiovascular: Regular rate/rhythm, Normal S1 S2 Gastrointestinal: Normal bowel sounds, No tenderness Musculoskeletal: No tenderness Integumentary: No rashes Neurological: Normal speech, Normal tone, Normal affect Laboratory Data at Discharge: WBC 6.8 K/uL (4.3-10.9) 06/29/19 08:28 Hgb 8.7 g/dL (12.0-15.0) L 06/29/19 08:28 Hct 27.8 % (36.0-45.0) L 06/29/19 08:28 Plt Count 254 K/uL (152-406) 06/29/19 08:28 Sodium 144 mmol/L (136-145) 06/29/19 08:28 Potassium 4.7 mmol/L (3.5-5.1) D 06/29/19 08:28 BUN 8 mg/dL (7-18) 06/29/19 08:28 Creatinine 0.64 mg/dL (0.55-1.3) 06/29/19 08:28 Glucose 148 mg/dL (74-106) H 06/29/19 08:28 Phosphorus 3.5 mg/dL (2.5-4.9) 06/30/19 03:46 Magnesium 1.8 mg/dL (1.8-2.4) 06/30/19 03:46 Total Bilirubin 0.3 mg/dL (0.2-1.0) 06/26/19 06:55 AST 14 U/L (15-37) L 06/26/19 06:55 ALT 14 U/L (12-78) 06/26/19 06:55 Alkaline Phosphatase 71 U/L (45-117) 06/26/19 06:55 Troponin I < 0.02 ng/mL (0.0-0.045) 06/27/19 02:39 Home Medications: Aspirin [Aspir-Low] 81 mg PO DAILY 06/26/19 Atorvastatin Calcium [Lipitor*] 10 mg PO BEDTIME 06/26/19 Clopidogrel Bisulfate [Plavix] 1 tab PO DAILY 06/26/19 Colesevelam HCl 1 tab PO BID 06/26/19 Dulaglutide [Trulicity] 1.5 mg SQ SEECOM 06/26/19 Ferrous Sulfate [Ferrous Sulfate*] 1 tab PO SEECOM 06/26/19 Insulin Degludec [Tresiba Flextouch U-100] 30 units SQ DAILY 06/26/19 LORazepam [Lorazepam] 1 tab PO BID 06/26/19 Omeprazole [Prilosec] 1 tab PO DAILY 06/26/19 Tramadol HCl [Ultram] 50 mg PO BID 06/26/19 Vortioxetine Hydrobromide [Trintellix] 1 tab PO DAILY 06/26/19 Lidocaine 5% Patch [Lidoderm 5% Patch*] 1 patch TOP 1700 patch 07/02/19 traMADol HCL [Ultram*] 50 mg PO Q6H PRN tab 07/02/19 Patient Discharge Instructions: Please follow up with the primary care physician in 2-3 days. Please return to the emergency room for worsening symptoms. Diet: Regular Activity: Ad britta Time spent managing pt's care (in minutes): 55
--- NOTE | 2019-07-02 16:20 | EKG ---
Test Date: 2019-07-02 Test Time: 14:20:01 Vaccine Specialist: ROBINA MEASUREMENT RESULTS: Intervals: Rate: 109 KS: 156 QRSD: 76 QT: 366 QTc: 492 [place]: P: 75 KS: 156 QRS: 67 T: 90 INTERPRETIVE STATEMENTS: Sinus tachycardia Otherwise normal ECG Compared to ECG 06/29/2019 07:46:08 Atrial premature complex(es) no longer present T-wave abnormality no longer present Electronically Signed On 07-02-19 16:19:48 CDT by Anatoliy Parikh
[2019-07-02] MEDS: LIDOCAINE 5% PATCH TOP SCH (17:23)
[2019-07-02] MEDS: ATORVASTATIN 10 MG TAB PO SCH (21:08)
[2019-07-02] MEDS: LORAZEPAM 0.5 MG TABLET PO PRN (21:09)
[2019-07-03] MEDS: TRAMADOL HCL 50 MG TAB PO PRN ×2 (02:21→16:39)
[2019-07-03] MEDS: PANTOPRAZOLE 40MG TABLET PO SCH (05:29)
[2019-07-03 05:53] LABS: Absolute Lymphocytes (CBC) 1.2 K/uL (0.7-4.9); Basophils % 0.5 % (0-1.3); Hematocrit 28.7 % (36.0-45.0); Lymphocytes % 21.6 % (15.3-44.8); MPV 8.8 fL (7.6-11.3); RBC Red Blood Cell Count 4.04 M/uL (3.86-4.86)
[2019-07-03 06:17] LABS: BUN Blood Urea Nitrogen 16 mg/dL (7-18); Bicarbonate 31 mmol/L (21-32); Glucose Level 180 mg/dL (74-106); Potassium 3.5 mmol/L (3.5-5.1); Sodium Level 141 mmol/L (136-145)
[2019-07-03] MEDS ORDERED: POTASSIUM CL SA 10 MEQ TAB PO ONE (06:31)
[2019-07-03] MEDS: INSULIN -REGULAR HUMAN 50 UNIT/0.5 ML ML SQ SCH ×4 (07:30→21:53)
[2019-07-03] MEDS: COLESEVELAM HCL PO SCH ×2 (08:32→21:00)
[2019-07-03] MEDS: FERROUS SULFATE 325 MG TAB PO SCH (08:33)
[2019-07-03] MEDS: MAGNESIUM OXIDE 400 MG TAB PO SCH (08:33)
[2019-07-03] MEDS: HOME MED 1 EA UNK (Vortioxetine Hydrobromide [Trintellix] 1 TAB) PO SCH (08:34)
[2019-07-03] MEDS: Insulin Degludec [Tresiba Flextouch U-100] SQ SCH (08:34)
[2019-07-03] MEDS: ONDANSETRON 4 MG (ODT) TAB PO PRN (09:14)
[2019-07-03] MEDS: LIDOCAINE 5% PATCH TOP SCH (16:34)
--- NOTE | 2019-07-03 20:48 | PN ---
Subjective: Currently, patient lying in bed. She looks comfortable. She has no chest pain. No abd ominal pain. There are no family at the bedside. Apparently, she was supposed to be discharged, but that was aborted due to the location that the family did not agree with. Review of Systems: Otherwise, appear negative. Physical Examination: Vital Signs: Currently, blood pressure is 126/69, respiratory rate 17, pulse 78, temperature 97.6. General: Patient is alert, oriented x2. HEENT: Atraumatic, normocephalic. PERRLA. Oral mucosa is moist. Neck: Supple. No JVD. No carotid bruits. Chest: Clear to auscultation. Good air entry. Heart: Regular rate and rhythm. S1, S2 normal. No gallop or murmur. Abdomen: Soft, nontender. No masses. No hepatosplenomegaly. Positive bowel sounds. Extremities: No clubbing, cyanosis, or edema. Neurologic: Deferred. Laboratory Data: Labs today; CBC was normal except for hemoglobin 8.8. Chemistry within normal limi ts except for glucose 118. Assessment And Plan: 1.Altered mental status secondary to pain medication use after fracture versus infectious versus pro gression of her dementia. Mental status improved back to her baseline. Alert and oriented x2. She was on antibiotic earlier for presumed pneumonia, now off. No active infection. We will observe. 2.Senile dementia without behavioral disturbance, chronic. 3.Rib fracture. Subacute, function control. Continue pain control. Avoid too much pain medication so as patient does not get confused. 4.Acid reflux. Continue PPI. 5.Hyperlipidemia. On atorvastatin 10 mg. 6.History of iron deficiency. On ferrous sulfate 325 mg. 7.Diabetes mellitus. On insulin sliding scale, mild. Continue home medication. 8.Hypertension. Well controlled. 9.Frequent falls. Continue working with Physical Therapy. 10.Discharge plan was to go to a nursing home facility at 3 weeks, but family now would like to g o to [facility], which is not being accepted here, so most likely, she will be here through Friday to get accepted. RODERICK/FOREIGN Voice ID: [id number] Report ID: [id number]
[2019-07-03] MEDS: ATORVASTATIN 10 MG TAB PO SCH (21:47)
[2019-07-04] MEDS: LORAZEPAM 0.5 MG TABLET PO PRN ×2 (00:32→20:13)
[2019-07-04] MEDS: TRAMADOL HCL 50 MG TAB PO PRN ×3 (00:35→12:10)
[2019-07-04] MEDS: PANTOPRAZOLE 40MG TABLET PO SCH (06:11)
[2019-07-04 06:26] LABS: Magnesium 1.8 mg/dL (1.8-2.4); Phosphorus 2.6 mg/dL (2.5-4.9)
[2019-07-04 06:27] LABS: BUN Blood Urea Nitrogen 12 mg/dL (7-18); Bicarbonate 31 mmol/L (21-32); Glucose Level 209 mg/dL (74-106); Potassium 3.7 mmol/L (3.5-5.1); Sodium Level 139 mmol/L (136-145)
[2019-07-04] MEDS: INSULIN -REGULAR HUMAN 50 UNIT/0.5 ML ML SQ SCH ×4 (08:03→20:12)
[2019-07-04] MEDS: FERROUS SULFATE 325 MG TAB PO SCH (08:04)
[2019-07-04] MEDS: COLESEVELAM HCL PO SCH ×2 (08:05→20:13)
[2019-07-04] MEDS: MAGNESIUM OXIDE 400 MG TAB PO SCH (08:05)
[2019-07-04] MEDS: HOME MED 1 EA UNK (Vortioxetine Hydrobromide [Trintellix] 1 TAB) PO SCH (08:06)
[2019-07-04] MEDS: Insulin Degludec [Tresiba Flextouch U-100] SQ SCH (08:06)
[2019-07-04] MEDS ORDERED: POTASSIUM 25 MEQ EFFERV TAB PO ONE (09:00)
[2019-07-04] MEDS ORDERED: MAGNESIUM SULFATE 1 gm IVPB 1 GM/100 ML BAG IV ONE (09:00)
[2019-07-04] MEDS: ACETAMINOPHEN 500 MG TAB PO PRN (11:00)
[2019-07-04] MEDS ORDERED: HYDRALAZINE HCL 20 MG/ML VIAL IV PRN (11:35)
[2019-07-04] MEDS: HYDRALAZINE HCL 10 MG TABLET PO PRN (12:42)
--- NOTE | 2019-07-04 14:32 | PN ---
Subjective: Patient currently lying in bed. She looks comfortable. She has no chest pain, no abdom inal pain overnight. Family at the bedside, they are concerned about her anxiety. She has no fever, no chills. Review of Systems: Otherwise unobtainable. Objective: Vital Signs: Blood pressure 170/74, respiratory rate 18, pulse 82, temperature 36.9. General: Patient is alert, oriented x1, does not look in any distress. HEENT: Atraumatic, normocephalic. PERRLA. Oral mucosa is dry. Neck: Supple. No JVD. No bruits. Chest: Clear to auscultation. Good air entry. Heart: Regular rate and rhythm. S1, S2 normal. No gallop or murmur. Abdomen: Soft, nontender. No masses. No hepatosplenomegaly. Positive bowel sounds. Extremities: No clubbing, cyanosis, or edema. Neurologic: Deferred. Laboratory Data: Labs today showed CBC was normal except for hemoglobin 8.8. Chemistry within sole l except for glucose 209. Assessment And Plan: 1.Altered mental status secondary to pain medication use after a fracture versus infectious etiology versus progression of her dementia. Mental status at her baseline according to the family. Off ant ibiotic at this point, there is no active infection. 2.Senile dementia without behavioral disturbance, chronic, observe. 3.Rib fracture, subacute secondary to her fall. Pain is well controlled. We are just trying to kia id too much pain medication so it does not exacerbate her confusion. 4.Acid reflux. Continue on PPI. 5.History of hyperlipidemia, on atorvastatin 10 mg. 6.History of iron deficiency. Continue iron sulfate 325 mg daily. 7.Diabetes mellitus. Continue insulin sliding scale. I increased her insulin by 5 units daily for the long-acting due to poorly controlled. 8.Hypertension. Her hypertension poorly controlled. We will add hydralazine. 9.Frequent falls. The patient is working with Physical Therapy. 10.Discharge plan will be pending upon acceptance at [facility] facility, hopefully Friday morning sun dominguez will be transferred there. RODERICK/FOREIGN Voice ID: [id number] Report ID: [id number]
[2019-07-04] MEDS: LIDOCAINE 5% PATCH TOP SCH (16:28)
[2019-07-04] MEDS: ATORVASTATIN 10 MG TAB PO SCH (20:13)
[2019-07-05] MEDS: HYDRALAZINE HCL 10 MG TABLET PO PRN ×2 (00:30→22:04)
--- NOTE | 2019-07-05 01:19 | P.PN ---
Subjective Date of Service: 07/05/19 Primary Care Provider: Unknown Chief Complaint: Altered mental status/chest pain Subjective: Improving Physical Examination - Vital Signs Temperature: 97.2 F Blood Pressure: 118/51 Pulse: 97 Respirations: 14 Pulse Ox (%): 96 - Physical Exam General: Alert, Cooperative Neck: Supple Respiratory: Clear to auscultation bilaterally, Normal air movement Cardiovascular: Normal pulses, Regular rate/rhythm Gastrointestinal: Normal bowel sounds, Soft and benign, Non-distended Neurological: Normal speech, Normal strength at 5/5 x4 extr, Normal tone, Normal affect, Dementia - Studies Medications List Reviewed: Yes Assessment & Plan Discharge Plan: Other (long-term facility) Plan to discharge in: 24 Hours Physician Review Additional Text: Impression: Altered mental status secondary to pain medication complicated with senile dementia Fall with rib fracture GERD Hyperlipidemia Iron deficiency anemia Diabetes mellitus type 2 insulin dependent Hypertension Plan: Altered mental status secondary to pain medication complicated with senile dementia: Patient appears to be at her baseline. Continue monitor closely. No indication of infection at this time. Antibiotics discontinued. Continue physical therapy. Fall precaution in place. Patient denied acceptance to [facility] facility. Awaiting skilled placement approval for another facility- [facility] [place] [facility] [place]. Anticipate approval within the next 24-48 hr. Once approved patient can be transition to skilled facility. Fall with rib fracture: Continue with physical therapy. Will provide medication as needed GERD: Continue medication Hyperlipidemia: Continue medication Iron deficiency anemia: Continue medication. Diabetes mellitus type 2 insulin dependent: Continue to adjust insulin therapy for better control. Hypertension: Continue medication. Time Spent Managing Pts Care (In Minutes): 55
[2019-07-05] MEDS: TRAMADOL HCL 50 MG TAB PO PRN ×2 (02:17→14:39)
[2019-07-05] MEDS ORDERED: LORAZEPAM 0.5 MG TABLET PO ONE (02:33)
[2019-07-05] MEDS: LORAZEPAM 0.5 MG TABLET PO PRN ×2 (02:42→21:41)
[2019-07-05 04:44] LABS: BUN Blood Urea Nitrogen 11 mg/dL (7-18); Bicarbonate 31 mmol/L (21-32); Glucose Level 131 mg/dL (74-106); Potassium 3.8 mmol/L (3.5-5.1); Sodium Level 140 mmol/L (136-145)
[2019-07-05] MEDS ORDERED: POTASSIUM CL SA 10 MEQ TAB PO ONE (04:54)
[2019-07-05] MEDS: PANTOPRAZOLE 40MG TABLET PO SCH (06:00)
[2019-07-05] MEDS: INSULIN -REGULAR HUMAN 50 UNIT/0.5 ML ML SQ SCH ×4 (07:30→21:41)
[2019-07-05] MEDS: HOME MED 1 EA UNK (Vortioxetine Hydrobromide [Trintellix] 1 TAB) PO SCH (09:00)
[2019-07-05] MEDS: COLESEVELAM HCL PO SCH ×2 (09:00→21:00)
[2019-07-05] MEDS: MAGNESIUM OXIDE 400 MG TAB PO SCH (09:00)
[2019-07-05] MEDS: INSULIN DEGLUDEC U SQ SCH (09:00)
[2019-07-05] MEDS: FERROUS SULFATE 325 MG TAB PO SCH (09:44)
[2019-07-05] MEDS: LIDOCAINE 5% PATCH TOP SCH (18:12)
[2019-07-05] MEDS: ATORVASTATIN 10 MG TAB PO SCH (21:41)
[2019-07-06] MEDS: TEMAZEPAM 15 MG CAP PO PRN ×2 (02:22→22:44)
[2019-07-06 04:40] LABS: BUN Blood Urea Nitrogen 12 mg/dL (7-18); Bicarbonate 30 mmol/L (21-32); Glucose Level 111 mg/dL (74-106); Potassium 3.9 mmol/L (3.5-5.1); Sodium Level 139 mmol/L (136-145)
[2019-07-06] MEDS ORDERED: POTASSIUM CL SA 10 MEQ TAB PO ONE (04:45)
[2019-07-06] MEDS: PANTOPRAZOLE 40MG TABLET PO SCH (05:35)
[2019-07-06] MEDS: INSULIN -REGULAR HUMAN 50 UNIT/0.5 ML ML SQ SCH ×4 (07:30→20:10)
[2019-07-06] MEDS: COLESEVELAM HCL PO SCH ×2 (09:00→20:09)
[2019-07-06] MEDS: HOME MED 1 EA UNK (Vortioxetine Hydrobromide [Trintellix] 1 TAB) PO SCH (09:00)
[2019-07-06] MEDS: MAGNESIUM OXIDE 400 MG TAB PO SCH (09:00)
[2019-07-06] MEDS: ACETAMINOPHEN 500 MG TAB PO PRN (09:16)
[2019-07-06] MEDS: FERROUS SULFATE 325 MG TAB PO SCH (09:18)
[2019-07-06] MEDS: INSULIN DEGLUDEC U SQ SCH (11:38)
--- NOTE | 2019-07-06 15:12 | P.PN ---
Subjective Date of Service: 07/06/19 Primary Care Provider: Unknown Chief Complaint: Altered mental status/chest pain Subjective: No new changes, Tolerating diet, Working w/ PT, Doing well Review of Systems 10-point ROS is otherwise unremarkable Physical Examination - Vital Signs Temperature: 97.4 F Blood Pressure: 137/52 Pulse: 86 Respirations: 16 Pulse Ox (%): 97 - Physical Exam General: Alert, In no apparent distress, Demented HEENT: Atraumatic, PERRLA, EOMI Neck: Supple, JVD not distended Respiratory: Clear to auscultation bilaterally, Normal air movement Cardiovascular: Regular rate/rhythm, Normal S1 S2 Gastrointestinal: Normal bowel sounds, No tenderness Musculoskeletal: No tenderness Integumentary: No rashes Neurological: Normal speech, Normal tone, Normal affect Lymphatics: No axilla or inguinal lymphadenopathy - Studies Medications List Reviewed: Yes Assessment And Plan Discharge Plan: Other Plan to discharge in: Greater than 2 days - Code Status/Comfort Care Code Status Assessed: Yes Physician Review Additional Text: Impression/Plan: Altered mental status most likely progression of underlying dementia -Patient appears to be at her baseline. -Continue monitor closely. No indication of infection at this time. Antibiotics discontinued. -Continue physical therapy. Fall precaution in place. -Patient denied acceptance to [facility] facility. -Awaiting skilled placement approval for another facility-[facility]. Fall with rib fracture -Continue with physical therapy. Will provide medication as needed GERD -Continue medication Hyperlipidemia -Continue medication Iron deficiency anemia -Continue medication. Diabetes mellitus type 2 insulin dependent -Continue to adjust insulin therapy for better control. Hypertension -Continue medication. Dispo: Awaiting Placement at this time Critical Care: No
[2019-07-06] MEDS: LIDOCAINE 5% PATCH TOP SCH (17:08)
[2019-07-06] MEDS: ATORVASTATIN 10 MG TAB PO SCH (20:10)
[2019-07-07 04:40] LABS: Magnesium 1.9 mg/dL (1.8-2.4); Potassium 3.9 mmol/L (3.5-5.1)
[2019-07-07] MEDS: PANTOPRAZOLE 40MG TABLET PO SCH (05:14)
[2019-07-07] MEDS: INSULIN -REGULAR HUMAN 50 UNIT/0.5 ML ML SQ SCH ×2 (07:30→11:52)
[2019-07-07 07:46] VITALS: O2SAT 96
[2019-07-07] MEDS: ACETAMINOPHEN 500 MG TAB PO PRN (08:12)
[2019-07-07] MEDS: INSULIN DEGLUDEC U SQ SCH (08:13)
[2019-07-07] MEDS: FERROUS SULFATE 325 MG TAB PO SCH (08:14)
[2019-07-07] MEDS: MAGNESIUM OXIDE 400 MG TAB PO SCH (08:15)
[2019-07-07] MEDS: HOME MED 1 EA UNK (Vortioxetine Hydrobromide [Trintellix] 1 TAB) PO SCH (08:15)
[2019-07-07] MEDS: COLESEVELAM HCL PO SCH (08:15)
[2019-07-07] MEDS ORDERED: POTASSIUM CL SA 10 MEQ TAB PO ONE (09:00)
[2019-07-07] MEDS ORDERED: TRAMADOL HCL 50 MG TAB PO ONE (11:53)
[2019-07-07 12:48] VITALS: BP 132/78; TEMP 97.9
--- NOTE | 2019-07-07 16:31 | P.DS ---
Admission Date: 07/01/19 Discharge Date: 07/07/19 Primary Care Provider: Unknown Disposition: TRANSFER TO SNF Discharge Condition: FAIR Reason for Admission: Altered mental status/chest pain - Problems (1) Altered mental status Status: Acute Qualifiers: Altered mental status type: unspecified Qualified Code(s): R41.82 - Altered mental status, unspecified (2) Controlled type 2 diabetes mellitus with foot ulcer, with long-term current use of insulin Status: Chronic (3) GERD (gastroesophageal reflux disease) Status: Chronic Qualifiers: Esophagitis presence: esophagitis presence not specified Qualified Code(s) : K21.9 - Gastro-esophageal reflux disease without esophagitis (4) Hyperlipidemia Status: Chronic Qualifiers: Hyperlipidemia type: unspecified Qualified Code(s): E78.5 - Hyperlipidemia , unspecified (5) Rib fracture Status: Chronic Qualifiers: Encounter type: sequela Rib fracture type: multiple ribs Fracture type: closed Laterality: unspecified laterality Qualified Code(s): S22.49XS - Multiple fractures of ribs, unspecified side, sequela (6) Senile dementia Status: Chronic Qualifiers: Dementia behavioral disturbance: without behavioral disturbance Qualified Code(s): F03.90 - Unspecified dementia without behavioral disturbance Brief History of Present Illness: 84-year-old woman was previously brought to the hospital after a fall at home. Workup in the ED suggested 2 rib fractures on the left. Workup was negative for stroke. She was subsequently discharged from the hospital with pain medications. Daughter reports that she became confused after discharge and was still in pain. She also had poor oral intake so she was therefore brought to the emergency department again where patient was subsequently admitted for further management. Hospital Course: She was admitted for altered mental status secondary to pain medication versus infectious. Her mental status slowly improved and returned to baseline. She was given IV antibiotics for possible UTI as well as possible pneumonia. Her urine culture grew mixed sue most likely secondary to skin contaminants acquisition. Her clinical condition slowly improved, her pain management was better. She was getting tramadol as needed for pain. Disposition to rehab was recommended. Patient has now been excepted to a facility for rehab. Vital Signs/Physical Exam: Temp Pulse Resp BP Pulse Ox 97.9 F 98 H 19 132/78 99 07/07/19 12:00 07/07/19 12:00 07/07/19 12:00 07/07/19 12:00 07/07/19 12:00 General: In no apparent distress, Cooperative HEENT: Atraumatic Neck: Supple Respiratory: Clear to auscultation bilaterally, Normal air movement Cardiovascular: No edema Capillary refill: <2 Seconds Gastrointestinal: Normal bowel sounds, Soft and benign Integumentary: No rashes Laboratory Data at Discharge: WBC 5.3 K/uL (4.3-10.9) D 07/03/19 05:20 Hgb 8.8 g/dL (12.0-15.0) L 07/03/19 05:20 Hct 28.7 % (36.0-45.0) L 07/03/19 05:20 Plt Count 247 K/uL (152-406) 07/03/19 05:20 Sodium 142 mmol/L (136-145) 07/07/19 03:43 Potassium 3.9 mmol/L (3.5-5.1) 07/07/19 03:43 BUN 17 mg/dL (7-18) 07/07/19 03:43 Creatinine 0.75 mg/dL (0.55-1.3) 07/07/19 03:43 Glucose 159 mg/dL (74-106) H 07/07/19 03:43 Phosphorus 2.6 mg/dL (2.5-4.9) 07/04/19 05:20 Magnesium 1.9 mg/dL (1.8-2.4) 07/07/19 03:43 Total Bilirubin 0.3 mg/dL (0.2-1.0) 06/26/19 06:55 AST 14 U/L (15-37) L 06/26/19 06:55 ALT 14 U/L (12-78) 06/26/19 06:55 Alkaline Phosphatase 71 U/L (45-117) 06/26/19 06:55 Troponin I < 0.02 ng/mL (0.0-0.045) 06/27/19 02:39 Home Medications: Aspirin [Aspir-Low] 81 mg PO DAILY 06/26/19 Atorvastatin Calcium [Lipitor*] 10 mg PO BEDTIME 06/26/19 Clopidogrel Bisulfate [Plavix] 1 tab PO DAILY 06/26/19 Colesevelam HCl 1 tab PO BID 06/26/19 Dulaglutide [Trulicity] 1.5 mg SQ SEECOM 06/26/19 Ferrous Sulfate [Ferrous Sulfate*] 1 tab PO SEECOM 06/26/19 Insulin Degludec [Tresiba Flextouch U-100] 30 units SQ DAILY 06/26/19 LORazepam [Lorazepam] 1 tab PO BID 06/26/19 Omeprazole [Prilosec] 1 tab PO DAILY 06/26/19 Tramadol HCl [Ultram] 50 mg PO BID 06/26/19 Vortioxetine Hydrobromide [Trintellix] 1 tab PO DAILY 06/26/19 Lidocaine 5% Patch [Lidoderm 5% Patch*] 1 patch TOP 1700 patch 07/02/19 traMADol HCL [Ultram*] 50 mg PO Q6H PRN tab 07/02/19 Patient Discharge Instructions: Please follow up with the primary care physician in 2-3 days. Please return to the emergency room for worsening symptoms. Diet: Regular Activity: Ad britta
== END 2019-07-07 15:46 | DRG 948 ==
LOC: ER 15:22 → ERHOLD 20:46 → INTOOBSV 20:46 → 4TH 20:53 → OBSVTOIN 07-01 11:03
PROVIDERS: ADMIT Internal Medicine; ATTEND Hospitalist
DX: R41.82 Altered mental status, unspecified (principal); S22.42XA Multiple fractures of ribs, left side, initial encounter for closed fracture; G93.40 Encephalopathy, unspecified; F03.90 Unspecified dementia, unspecified severity, without behavioral disturbance, psychotic disturbance, mood disturbance, and anxiety; R64 Cachexia; E78.5 Hyperlipidemia, unspecified; K21.9 Gastro-esophageal reflux disease without esophagitis; D50.9 Iron deficiency anemia, unspecified; I10 Essential (primary) hypertension; T40.605A Adverse effect of unspecified narcotics, initial encounter; Y92.009 Unspecified place in unspecified non-institutional (private) residence as the place of occurrence of the external cause; Z68.29 Body mass index [BMI] 29.0-29.9, adult; E11.65 Type 2 diabetes mellitus with hyperglycemia; Z79.4 Long term (current) use of insulin; Z96.652 Presence of left artificial knee joint
CPT/HCPCS: 36415; 51702; 70450; 71045; 80048; 80053; 81003; 81015; 82962; 83735; 84100; 84484; 85025; 87086; 87088; 93005; 96361; 96365; 96366; 96375; 97112; 97116; 97161; 97530; 99285; G0378; J0360; J0696; J1170; J1720; J2270; J3010; J7030

== ENCOUNTER 2020-04-05 07:32 | Day surgery (SDC) | payer OTHER ==
--- OUTSIDE RECORDS SUMMARY | 2020-04-05 13:35 | XMS REPORT | Continuity of Care Document ---
:1935 Author Organization [facility] t Address [address] [place] [address] Care Team Providers Name Role Phone [place], Jim Main Attending Clinician Unavailable Doctor Unassigned, Name Attending Clinician Unavailable Mayi CHAHAL Attending Clinician Unknown Attending Clinician Unavailable Miguel CABRAL Attending Clinician Unavailable Ambika CHAHAL Attending Clinician Yu Ventura MD Attending Clinician Singer DUMONT Attending Clinician Jessica CHAHAL Attending Clinician Yu Ventura MD Admitting Clinician Jessica CHAHAL Admitting Clinician Problems This patient has no known problems. Allergies, Adverse Reactions, Alerts This patient has no known allergies or adverse reactions. Medications This patient has no known medications. Procedures This patient has no known procedures. Encounters Start End Encounter Admission Attending Care Care Encounter Source Date/Time Date/Time Type Type Clinicians Facility Department ID 2020-03-24 2020-03-24 Building Custodial Supervisor Varun Conrad [facility] [id number] 11:19:01 11:34:01 Visit Lab Main [place] [id number] [place] [id number] Lanie [phone] [address] 2020-03-24 2020-03-24 Orders Doctor LEROY [id number] 00:00:00 00:00:00 Only Unassigned, KELVIN [id number] [place] [facility] [id number] [id number] 2020-03-10 2020-03-10 [facility] [id number] 08:07:21 08:22:21 ne Visit Suri Oliver [id number] [place] [id number] Professio [phone] formerly [facility] [address] [facility] 2020-03-02 2020-03-02 Orders Doctor LEROY [id number] 00:00:00 00:00:00 Only Unassigned, KELVIN [id number] [place] [facility] [id number] [id number] 2020-02-23 2020-02-23 Telephone [facility], [facility] [id number] 00:00:00 00:00:00 Attending eMlody [id number] [place] [id number] [facility] [phone] [facility] 2020-02-22 2020-02-22 Transition Rita Rivera [id number] 00:00:00 00:00:00 of Care Penny Mckinneyy [id number] [place] [phone] [facility] 2020-02-17 2020-02-21 [facility] Apple [id number] 09:44:42 18:00:00 Encounter Ember Ventura 350. 1.13.[address]2.7.2.686 [phone] 100 2019-11-17 2019-11-19 Hospital Cheo Neal [facility] [id number] 09:07:46 13:52:00 Encounter Devang Lopez [id number] [place] [id number] [place] [phone] [id number] Results This patient has no known results.
[2020-04-05 13:57] VITALS: BMI 26.9
[2020-04-05 14:00] VITALS: O2SAT 96
[2020-04-05 14:01] VITALS: BP 134/45; TEMP 98.7
[2020-04-05 16:14] LABS: Hematocrit 29.7 % (36.0-45.0)
== END 2020-04-05 16:00 | disposition home health service (06) ==
LOC: DS 07:32
PROVIDERS: ATTEND Internal Medicine Hematology & Oncology
DX: D62 Acute posthemorrhagic anemia (principal)
CPT/HCPCS: 36415; 36430; 85014; 85018